=== PATIENT | female | born 1985 | race Caucasian/White ===

== ENCOUNTER 2017-08-26 23:47 | Emergency (ER) | payer OTHER ==
[2017-08-27] MEDS ORDERED: ONDANSETRON 4 MG/2 ML VIAL ONE (00:22)
[2017-08-27] MEDS ORDERED: NA CHLORIDE 0.9% 1,000 ML ONE (00:22)
[2017-08-27 00:42] LABS: Absolute Lymphocytes (CBC) 2.7 K/uL (0.7-4.9); Absolute Monocytes 0.4 K/uL (0.1-1.3); Absolute Neutrophil 2.6 K/uL (1.8-8.0); Basophils % 0.3 % (0-1.3); Eosinophils % 4.3 % (0-4.4); Hematocrit 35.9 % (36.0-45.0); Lymphocytes % 45.5 % (15.3-44.8); MCH 28.6 pg (27.0-35.0); MCV 85.1 fL (80-100); MPV 8.8 fL (7.6-11.3); RBC Red Blood Cell Count 4.21 M/uL (3.86-4.86)
[2017-08-27 00:44] LABS: Urine Blood NEGATIVE (NEG); Urine Glucose TRACE (NEG); Urine Protein NEGATIVE (NEG)
[2017-08-27 01:00] LABS: Bicarbonate 25 mEq/L (21-31); Glucose Level 184 mg/dL (65-120); Potassium 3.1 mEq/L (3.6-5.0); Sodium Level 136 mEq/L (135-145)
[2017-08-27 01:01] LABS: BUN Blood Urea Nitrogen 23 mg/dL (6-20)
--- NOTE | 2017-08-27 01:38 | ER ---
Nurse's Notes [facility] Name: Zehra Nicole Age: 31 yrs Sex: Female : 1985 Arrival Date: 08/26/2017 Time: 23:49 Bed 6 Private MD: Estella Camacho Diagnosis: Nausea and vomiting Presentation: 08/26 23:59 Presenting complaint: Patient states: N/V since this evening. States she is diabetic aa1 and tested her ketones at home and reports it resulted as large. Also reports that she recently started a very low carb diet 4 days ago. Last BGL was 211 \T\ 2330. Transition of care: patient was not received from another setting of care. Onset of symptoms was August 26, 2017. Initial Sepsis Screen: Does the patient meet any 2 criteria? No. Patient's initial sepsis screen is negative. Does the patient have a suspected source of infection? No. Patient's initial sepsis screen is negative. Care prior to arrival: None. 23:59 Method Of Arrival: Ambulatory aa1 23:59 Acuity: KAZ 3 aa1 Triage Assessment: 08/27 00:02 General: Appears in no apparent distress. comfortable, Behavior is calm, cooperative, aa1 appropriate for age. 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 - Social history:: Smoking status: Patient/guardian denies using tobacco. Screenin:01 Abuse screen: Denies threats or abuse. Nutritional screening: No deficits noted. ea Tuberculosis screening: No symptoms or risk factors identified. Fall Risk None identified. Assessment: 00:30 General: Appears in no apparent distress. Behavior is calm, cooperative, appropriate ea for age. Pain: Denies pain. Neuro: Level of Consciousness is awake, alert, obeys commands, Oriented to person, place, time, situation. Cardiovascular: Heart tones S1 S2 present Patient's skin is warm and dry. Respiratory: Airway is patent Respiratory effort is even, unlabored, Respiratory pattern is regular, symmetrical, Breath sounds are clear bilaterally. GI: Abdomen is non-distended, Bowel sounds present X 4 quads. Abd is soft and non tender. GI: Reports nausea, vomiting, since this AM. : No signs and/or symptoms were reported regarding the genitourinary system. EENT: No signs and/or symptoms were reported regarding the EENT system. Derm: Skin is pink, warm \T\ dry. 01:47 Reassessment: Patient and/or family updated on plan of care and expected duration. Pain ea level reassessed. Patient is alert, oriented x 3, equal unlabored respirations, skin warm/dry/pink. Discharge instructions given to patient, verbal instruction given to patient, verbalized the understanding of instruction. Vital Signs: 00:02 BP 124 / 88; Pulse 75; Resp 16; Temp 97.6; Pulse Ox 100% ; Weight 63.5 kg; Height 5 ft. aa1 1 in. (154.94 cm); Pain 0/10; 00:25 BP 138 / 92; Pulse 66; Resp 18; Pulse Ox 99% ; ea 01:49 BP 129 / 79; Pulse 68; Resp 18; Temp 98; Pulse Ox 99% on R/A; Pain 0/10; ea 00:02 Body Mass Index 26.45 (63.50 kg, 154.94 cm) aa1 ED Course: 08/26 23:49 Patient arrived in ED. am2 23:51 Estella Camacho FNP-C is Private Physician. am2 04 00:00 Yariel Portillo MD is Attending Physician. kdr 00:01 Triage completed. aa1 00:02 Arm band placed on left wrist. Patient placed in an exam room, on a stretcher. aa1 00:21 Vidya Acuna, RN is Primary Nurse. ea 00:26 Inserted saline lock: 20 gauge in right antecubital area, using aseptic technique. mt Blood collected. 00:30 Patient has correct armband on for positive identification. Bed in low position. Call ea light in reach. Side rails up X 1. 01:48 No provider procedures requiring assistance completed. IV discontinued, intact, ea bleeding controlled, No redness/swelling at site. Pressure dressing applied. Administered Medications: 00:28 Drug: NS 0.9% 1000 ml Route: IV; Rate: 1 bolus; Site: right antecubital; ea 01:52 Follow up: Response: No adverse reaction; IV Status: Completed infusion; IV Intake: ea 1000ml 00:28 Drug: Zofran 4 mg Route: IVP; Site: right antecubital; ea 01:52 Follow up: Response: No adverse reaction ea Intake: 01:52 IV: 1000ml; Total: 1000ml. ea Outcome: 01:37 Discharge ordered by . kdr 01:48 Discharged to home ambulatory. ea 01:48 Condition: improved 01:48 Discharge instructions given to patient, Instructed on discharge instructions, follow up and referral plans. medication usage, Demonstrated understanding of instructions, follow-up care, medications, Prescriptions given X 1. 01:51 Patient left the ED. ea Signatures: Anastasia Marrero RN RN aa1 Yariel Portillo MD MD kdr Moreno, Amanda amRadha Galvan mt, Elena, RN RN ea
--- NOTE | 2017-08-27 01:38 | EDPHYS ---
Physician Documentation [facility] Name: Zehra Nicole Age: 31 yrs Sex: Female : 1985 Arrival Date: 08/26/2017 Time: 23:49 Bed 6 Private MD: Estella Camacho ED Physician Yariel Portillo HPI: 08/27 02:12 This 31 yrs old Female presents to ER via Ambulatory with complaints of kdr Nausea/Vomiting, high ketones. 02:12 The patient presents to the emergency department with nausea, vomiting, The patient was kdr concerned that she was spilling ketones in her urine and that she may be in early DKA. Onset: The symptoms/episode began/occurred gradually, last few days. Possible causes: unknown, She has had some diet changes in the last few days. The symptoms are aggravated by nothing. The symptoms are alleviated by nothing. Associated signs and symptoms: Pertinent positives: nausea, vomiting. Severity of symptoms: At their worst the symptoms were mild in the emergency department the symptoms are unchanged. The patient has experienced similar episodes in the past, a few times. The patient has not recently seen a physician. 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 - Social history:: Smoking status: Patient/guardian denies using tobacco. ROS: 02:12 Constitutional: Negative for fever, chills, and weight loss, Eyes: Negative for injury, kdr pain, redness, and discharge, Neck: Negative for injury, pain, and swelling, Cardiovascular: Negative for chest pain, palpitations, and edema, Respiratory: Negative for shortness of breath, cough, wheezing, and pleuritic chest pain, Back: Negative for injury and pain, : Negative for injury, bleeding, discharge, and swelling, MS/Extremity: Negative for injury and deformity, Skin: Negative for injury, rash, and discoloration, Neuro: Negative for headache, weakness, numbness, tingling, and seizure activity. Psych: Negative for depression, anxiety, suicide ideation, homicidal ideation, and hallucinations, Allergy/Immunology: Negative for hives, rash, and allergies, Endocrine: Negative for neck swelling, polydipsia, polyuria, polyphagia, and marked weight changes, Hematologic/Lymphatic: Negative for swollen nodes, abnormal bleeding, and unusual bruising. 02:12 Abdomen/GI: Positive for nausea and vomiting, Negative for abdominal pain, diarrhea, constipation, abdominal cramps, abdominal distension, anorexia, dysphagia, hematemesis, black/tarry stool, rectal pain, rectal bleeding, bowel incontinence. Exam: 02:12 Constitutional: This is a well developed, well nourished patient who is awake, alert, kdr and in no acute distress. Head/Face: Normocephalic, atraumatic. Eyes: Pupils equal round and reactive to light, extra-ocular motions intact. Lids and lashes normal. Conjunctiva and sclera are non-icteric and not injected. Cornea within normal limits. Periorbital areas with no swelling, redness, or edema. Neck: Trachea midline, no thyromegaly or masses palpated, and no cervical lymphadenopathy. Supple, full range of motion without nuchal rigidity, or vertebral point tenderness. No Meningismus. Chest/axilla: Normal chest wall appearance and motion. Nontender with no deformity. No lesions are appreciated. Cardiovascular: Regular rate and rhythm with a normal S1 and S2. No gallops, murmurs, or rubs. Normal PMI, no JVD. No pulse deficits. Respiratory: Lungs have equal breath sounds bilaterally, clear to auscultation and percussion. No rales, rhonchi or wheezes noted. No increased work of breathing, no retractions or nasal flaring. Abdomen/GI: Soft, non-tender, with normal bowel sounds. No distension or tympany. No guarding or rebound. No evidence of tenderness throughout. Back: No spinal tenderness. No costovertebral tenderness. Full range of motion. Skin: Warm, dry with normal turgor. Normal color with no rashes, no lesions, and no evidence of cellulitis. MS/ Extremity: Pulses equal, no cyanosis. Neurovascular intact. Full, normal range of motion. Neuro: Awake and alert, GCS 15, oriented to person, place, time, and situation. Cranial nerves II-XII grossly intact. Motor strength 5/5 in all extremities. Sensory grossly intact. Cerebellar exam normal. Normal gait. Psych: Awake, alert, with orientation to person, place and time. Behavior, mood, and affect are within normal limits. Vital Signs: 00:02 BP 124 / 88; Pulse 75; Resp 16; Temp 97.6; Pulse Ox 100% ; Weight 63.5 kg; Height 5 ft. aa1 1 in. (154.94 cm); Pain 0/10; 00:25 BP 138 / 92; Pulse 66; Resp 18; Pulse Ox 99% ; ea 01:49 BP 129 / 79; Pulse 68; Resp 18; Temp 98; Pulse Ox 99% on R/A; Pain 0/10; ea 00:02 Body Mass Index 26.45 (63.50 kg, 154.94 cm) aa1 MDM: 01:37 Patient medically screened. kdr 02:12 Data reviewed: vital signs, nurses notes, lab test result(s). Counseling: I had a kdr detailed discussion with the patient and/or guardian regarding: the historical points, exam findings, and any diagnostic results supporting the discharge/admit diagnosis, lab results, the need for outpatient follow up. 08/27 00:17 Order name: CBC with Diff; Complete Time: 00:55 kdr 08/27 00:17 Order name: Chem 7; Complete Time: 01:36 kdr 08/27 00:33 Order name: Urine Dipstick--Ancillary (enter results); Complete Time: 00:55 rg2 08/27 00:33 Order name: Urine --Ancillary (enter results); Complete Time: 00:55 rg2 08/27 00:17 Order name: Urine Dipstick-Ancillary (obtain specimen); Complete Time: 00:32 kdr Administered Medications: 00:28 Drug: NS 0.9% 1000 ml Route: IV; Rate: 1 bolus; Site: right antecubital; ea 01:52 Follow up: Response: No adverse reaction; IV Status: Completed infusion; IV Intake: ea 1000ml 00:28 Drug: Zofran 4 mg Route: IVP; Site: right antecubital; ea 01:52 Follow up: Response: No adverse reaction ea Disposition: 08/27/17 01:37 Discharged to Home. Impression: Nausea and vomiting. - Condition is Stable. - Discharge Instructions: Nausea and Vomiting, Basg-ri-Pkey. - Prescriptions for promethazine 25 mg Oral Tablet - take 1 tablet by ORAL route every 6 hours As needed; 16 tablet. - Medication Reconciliation Form, Thank You Letter, Antibiotic Education, Prescription Opioid Use form. - Follow up: Private Physician; When: 2 - 3 days; Reason: If symptoms return, Further diagnostic work-up, Recheck today's complaints, Continuance of care, Re-evaluation by your physician. - Problem is new. - Symptoms have improved. Signatures: Dispatcher [employer] EDAnastasia Stephenson, RN RN aa1 Yariel Portillo MD MD kdr Antunez, Elena, RN RN ea
[2017-08-27 02:28] VITALS: O2SAT 99
[2017-08-27 02:30] VITALS: BP 129/79; TEMP 98
== END 2017-08-27 01:51 | disposition home or self-care (01) ==
LOC: ER 23:47
DX: R11.2 Nausea with vomiting, unspecified (principal); E11.9 Type 2 diabetes mellitus without complications; E78.00 Pure hypercholesterolemia, unspecified; E03.9 Hypothyroidism, unspecified; Z79.4 Long term (current) use of insulin
CPT/HCPCS: 36415; 80048; 81003; 81025; 85025; 96361; 96374; 99284; J2405; J7030

== ENCOUNTER 2017-12-21 08:52 | Emergency (ER) | payer OTHER, SELFPAY ==
--- OUTSIDE RECORDS SUMMARY | 2017-12-21 08:54 | XMS REPORT ---
:1985 Author Organization e[employer] Care Team Providers Name Role Phone Janice Shaneka Provider Role Unavailable Allergies, Adverse Reactions, Alerts Substance Reaction Event Type N.K.D.A. Info Not Available Non Drug Allergy Problems Problem Type Condition Code Onset Dates Condition Status Assessment Acquired hypothyroidism E03.9 Active Problem Hyperlipemia E78.5 Active Problem Acquired hypothyroidism E03.9 Active Problem Depression F32.9 Active Assessment Type 1 diabetes mellitus with other E10.69 Active specified complication Assessment Gastroesophageal reflux disease, K21.9 Active esophagitis presence not specified Problem Type 1 diabetes mellitus with other E10.69 Active specified complication Problem Gastroesophageal reflux disease, K21.9 Active esophagitis presence not specified Medications Medication Code Code Instructions Start End Status Dosage System Date Date Tresiba FlexTouch ND 40318391878 200 UNIT/ML Active 40 units Subcutaneous daily Humalog KwikPen ND 35600092827 200 UNIT/ML Active 15 units Subcutaneous sub q prn sliding scale at meals 1 unit every 10 carbs Metformin HCl ND 14589035199 1000 MG Orally October 02, Active 1 tablet twice a day 2017 with a meal Simvastatin ND 09525372940 20 MG Orally Active 1 tablet Once a day in the evening Levothyroxine ND 54438986333 50 MCG Orally Jun 27, Active 1 tablet Sodium Once a day 2017 on an empty stomach in the morning Aspirin ND 09449431610 81 MG Orally Active 1 tablet Once a day Topiramate ND 84433551946 25 MG Orally Active 1 tablet Twice a day Omeprazole ND 80744516952 40 MG Orally October 02, Active 1 capsule Once a day 2017 Loestrin 24 NDC 0 1-20 MG-MCG Active 1 tablet Orally Once a day Results Name Result Date Reference Range Unit Abnormality Flag TSH ----TSH 0.03 [id number] mIU/L L Summary Purpose eClinicalWorks Submission
--- OUTSIDE RECORDS SUMMARY | 2017-12-21 08:54 | XMS REPORT ---
:1985 Author Organization [employer] Care Team Providers Name Role Phone Shaneka Camacho Provider Role Unavailable Allergies No Known Allergies Problems Problem Type Condition Code Onset Dates Condition Status Problem Hyperlipemia E78.5 Active Problem Acquired hypothyroidism E03.9 Active Problem Depression F32.9 Active Problem Type 1 diabetes mellitus with other E10.69 Active specified complication Problem Gastroesophageal reflux disease, K21.9 Active esophagitis presence not specified Medications Medication Code Code Instructions Start End Status Dosage System Date Date Levothyroxine [facility] 88886542568 25 MCG Orally Jun 27, Active 1 tablet Sodium Once a day 2017 on an empty stomach in the morning Results No Known Results Summary Purpose eClinicalWorks Submission
[2017-12-21] MEDS ORDERED: ONDANSETRON 4 MG/2 ML VIAL ONE (09:30)
[2017-12-21] MEDS ORDERED: NA CHLORIDE 0.9% 1,000 ML ONE (09:30)
[2017-12-21 09:41] LABS: Absolute Lymphocytes (CBC) 1.9 K/uL (0.7-4.9); Absolute Monocytes 0.3 K/uL (0.1-1.3); Absolute Neutrophil 2.4 K/uL (1.8-8.0); Basophils % 0.7 % (0-1.3); Eosinophils % 4.9 % (0-4.4); Hematocrit 43.6 % (36.0-45.0); Lymphocytes % 38.4 % (15.3-44.8); MCH 29.4 pg (27.0-35.0); Monocytes % 7.1 % (3.3-12.3); RBC Red Blood Cell Count 5.07 M/uL (3.86-4.86)
[2017-12-21 09:56] LABS: Urine Bacteria <20 /HPF (<20); Urine Culture Reflex Order NOT NEEDED; Urine Mucus 2+ /HPF (NONE SEEN); Urine RBC <5 /HPF (NONE SEEN)
[2017-12-21 09:57] LABS: Urine Blood NEGATIVE (NEG); Urine Glucose TRACE (NEG); Urine Protein NEGATIVE (NEG); Urine Specific Gravity >1.030 (1.005-1.030)
[2017-12-21 10:02] LABS: BUN Blood Urea Nitrogen 12 mg/dL (7-18); Bicarbonate 27 mmol/L (21-32); Glucose Level 187 mg/dL (74-106); Potassium 3.5 mmol/L (3.5-5.1); Sodium Level 138 mmol/L (136-145)
[2017-12-21] MEDS ORDERED: MECLIZINE HCL 12.5 MG TAB ONE (10:20)
--- NOTE | 2017-12-21 11:11 | ER ---
Nurse's Notes [facility] Name: Zehra Nicole Age: 32 yrs Sex: Female : 1985 Arrival Date: 12/21/2017 Time: 08:55 Bed 17 Private MD: Sharla Camacho Diagnosis: Vertigo Presentation: 12/21 09:00 Presenting complaint: Patient states: nausea since 0200 today. Dry mouth, dizziness, aa5 and diarrhea since 0800 today. Denies vomiting, denies pain. 09:00 Transition of care: patient was not received from another setting of care. Onset of aa5 symptoms was December 2017. Risk Assessment: Do you want to hurt yourself or someone else? Patient reports no desire to harm self or others. Initial Sepsis Screen: Does the patient meet any 2 criteria? No. Patient's initial sepsis screen is negative. Does the patient have a suspected source of infection? No. Patient's initial sepsis screen is negative. Care prior to arrival: None. 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 - Social history:: Smoking status: Patient/guardian denies using tobacco. - Ebola Screening: : No symptoms or risks identified at this time. Screenin:47 Abuse screen: Denies threats or abuse. Nutritional screening: No deficits noted. em Tuberculosis screening: No symptoms or risk factors identified. Fall Risk None identified. Assessment: 09:10 General: Appears in no apparent distress. uncomfortable, Behavior is calm, cooperative. em General: Denies fever. Pain: Denies pain. Neuro: Level of Consciousness is awake, alert, obeys commands, Oriented to person, place, time, situation, Gait is steady, Speech is normal, Facial symmetry appears normal, Reports dizziness, Denies headache. Cardiovascular: Capillary refill < 3 seconds Patient's skin is warm and dry. Respiratory: Airway is patent Respiratory effort is even, unlabored, Respiratory pattern is regular, symmetrical. GI: Abdomen is flat, Reports nausea, Patient currently denies vomiting. : Urine is clear. EENT: No signs and/or symptoms were reported regarding the EENT system. Derm: Skin is intact, Skin is pink, warm \T\ dry. Musculoskeletal: Range of motion: intact in all extremities. 09:10 Reassessment: I agree with assessment completed by Johan Presley LVN . aa5 10:59 Reassessment: Patient appears in no apparent distress at this time. Patient and/or em family updated on plan of care and expected duration. Pain level reassessed. Patient is alert, oriented x 3, equal unlabored respirations, skin warm/dry/pink. pt reports dizziness has not improved. 11:29 Reassessment: Patient is alert, oriented x 3, equal unlabored respirations, skin aa5 warm/dry/pink. Patient states feeling better. Patient states symptoms have improved. Vital Signs: 09:08 Weight 62.6 kg (R); Height 5 ft. 1 in. (154.94 cm) (R); Pain 0/10; aa5 09:41 BP 120 / 87; Pulse 77; Resp 16; Temp 98.9(O); Pulse Ox 97% on R/A; mh5 10:00 BP 119 / 82 Supine; Pulse 65; em 10:00 BP 130 / 88 Sitting; Pulse 75; em 10:00 BP 120 / 87 Standing; Pulse 93; em 11:04 BP 116 / 72; Pulse 68; Resp 19; Pulse Ox 99% on R/A; em 09:08 Body Mass Index 26.07 (62.60 kg, 154.94 cm) aa5 ED Course: 08:55 Patient arrived in ED. mr 08:55 Sharla Camacho is Private Physician. mr 08:58 Arm band placed on Patient placed in an exam room, on a stretcher. aa5 09:00 Le[facility] Henderson [facility]-C [facility]. kb 09:00 Joon Virgen MD is Attending Physician. kb 09:10 Johan Presley LVN is Primary Nurse. em 09:10 Triage completed. aa5 09:41 Initial lab(s) drawn, by me, sent to lab. Urine collected: clean catch specimen, mh5 cloudy. Inserted saline lock: 20 gauge in right forearm, using aseptic technique. Blood collected. 09:47 Patient has correct armband on for positive identification. Placed in gown. Bed in low em position. Call light in reach. 09:47 No provider procedures requiring assistance completed. em 11:29 IV discontinued, intact, bleeding controlled, No redness/swelling at site. Pressure aa5 dressing applied. Administered Medications: 09:40 Drug: Zofran 4 mg Route: IVP; Site: right forearm; aa5 10:18 Follow up: Response: No adverse reaction; Nausea is decreased em 09:46 Drug: NS 0.9% 1000 ml Route: IV; Rate: 1000 ml; Site: right forearm; em 11:00 Follow up: IV Status: Completed infusion; IV Intake: 1000ml em 10:18 Drug: Meclizine 25 mg Route: PO; em 11:20 Follow up: Response: No adverse reaction em Point of Care Testing: Blood Glucose: 09:41 Blood Glucose: 194 mg/dL; mh5 Ranges: Intake: 11:00 IV: 1000ml; Total: 1000ml. em Outcome: 11:10 Discharge ordered by . nikhil 11:29 Discharged to home ambulatory. aa5 11:29 Condition: improved 11:29 Discharge instructions given to patient, Instructed on discharge instructions, follow up and referral plans. medication usage, Demonstrated understanding of instructions, follow-up care, medications, Prescriptions given X 2. 11:30 Patient left the ED. aa5 Signatures: Leona Henderson, FAMILY SERVICES MANAGER-C FAMILY SERVICES MANAGER-Ckb Saranya Mednez Fernandez, Johan, RESEARCH MANAGER RESEARCH MANAGER em Mary Jane Sorto, RN Saranya Hutchison Wes
--- NOTE | 2017-12-21 11:11 | EDPHYS ---
Physician Documentation [facility] Name: Zehra Nicole Age: 32 yrs Sex: Female : 1985 Arrival Date: 12/21/2017 Time: 08:55 Bed 17 Private MD: Sharla Camacho ED Physician Joon Virgen HPI: 12/21 11:13 This 32 yrs old Female presents to ER via Ambulatory with complaints of kb Dizziness, Nausea. 09:33 The patient presents with dizziness. Onset: The symptoms/episode began/occurred this kb morning. Context: occurred at home, occurred while the patient was at rest, just prior to the episode the patient experienced nausea. Modifying factors: The symptoms are alleviated by nothing, the symptoms are aggravated by movement of head, standing up, changing position. Associated signs and symptoms: Pertinent positives: nausea. Severity of symptoms: At their worst the symptoms were moderate in the emergency department the symptoms are unchanged. Patient's baseline: Neuro: alert and fully oriented, Motor: no deficits, Ambulation: walks without assistance, Speech: normal. The patient has not experienced similar symptoms in the past. The patient has not recently seen a physician. Pt states she wasn't feeling well yesterday, woke up with nausea in the middle of the night. Woke up again at 0800 with nausea and dizziness. States symptoms are worse when she moves her head, looks up, changes positions. . 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 - Social history:: Smoking status: Patient/guardian denies using tobacco. - Ebola Screening: : No symptoms or risks identified at this time. ROS: 09:33 Constitutional: Negative for fever, chills, and weight loss, Cardiovascular: Negative kb for chest pain, palpitations, and edema, Respiratory: Negative for shortness of breath, cough, wheezing, and pleuritic chest pain, Abdomen/GI: Negative for abdominal pain, vomiting, diarrhea, and constipation. +nausea MS/Extremity: Negative for injury and deformity, Skin: Negative for injury, rash, and discoloration, Neuro: Negative for headache, weakness, numbness, tingling, and seizure. 09:33 Neuro: Positive for dizziness. Exam: 09:33 Head/Face: Normocephalic, atraumatic. Eyes: Pupils equal round and reactive to light, kb extra-ocular motions intact. Lids and lashes normal. Conjunctiva and sclera are non-icteric and not injected. Cornea within normal limits. Periorbital areas with no swelling, redness, or edema. ENT: Nares patent. No nasal discharge, no septal abnormalities noted. Tympanic membranes are normal and external auditory canals are clear. Oropharynx with no redness, swelling, or masses, exudates, or evidence of obstruction, uvula midline. Mucous membranes moist. Neck: Trachea midline, no thyromegaly or masses palpated, and no cervical lymphadenopathy. Supple, full range of motion without nuchal rigidity, or vertebral point tenderness. No Meningismus. Chest/axilla: Normal chest wall appearance and motion. Nontender with no deformity. No lesions are appreciated. Cardiovascular: Regular rate and rhythm with a normal S1 and S2. No gallops, murmurs, or rubs. Normal PMI, no JVD. No pulse deficits. Respiratory: Lungs have equal breath sounds bilaterally, clear to auscultation and percussion. No rales, rhonchi or wheezes noted. No increased work of breathing, no retractions or nasal flaring. Abdomen/GI: Soft, non-tender, with normal bowel sounds. No distension or tympany. No guarding or rebound. No evidence of tenderness throughout. Skin: Warm, dry with normal turgor. Normal color with no rashes, no lesions, and no evidence of cellulitis. MS/ Extremity: Pulses equal, no cyanosis. Neurovascular intact. Full, normal range of motion. Neuro: Awake and alert, GCS 15, oriented to person, place, time, and situation. Cranial nerves II-XII grossly intact. Motor strength 5/5 in all extremities. Sensory grossly intact. Cerebellar exam normal. Normal gait. 09:36 Constitutional: The patient appears alert, awake, uncomfortable. kb Vital Signs: 09:08 Weight 62.6 kg (R); Height 5 ft. 1 in. (154.94 cm) (R); Pain 0/10; aa5 09:41 BP 120 / 87; Pulse 77; Resp 16; Temp 98.9(O); Pulse Ox 97% on R/A; mh5 10:00 BP 119 / 82 Supine; Pulse 65; em 10:00 BP 130 / 88 Sitting; Pulse 75; em 10:00 BP 120 / 87 Standing; Pulse 93; em 11:04 BP 116 / 72; Pulse 68; Resp 19; Pulse Ox 99% on R/A; em 09:08 Body Mass Index 26.07 (62.60 kg, 154.94 cm) aa5 MDM: 09:00 Patient medically screened. kb 09:33 Data reviewed: vital signs, nurses notes. Data interpreted: Pulse oximetry: on room air kb is 100 %. Interpretation: normal. 11:07 Counseling: I had a detailed discussion with the patient and/or guardian regarding: the kb historical points, exam findings, and any diagnostic results supporting the discharge/admit diagnosis, lab results, the need for outpatient follow up, a family practitioner, to return to the emergency department if symptoms worsen or persist or if there are any questions or concerns that arise at home. ED course: Pt states the dizziness is now only when she turns her head to the right. Appears to be more comfortable. . 12/21 09:13 Order name: Basic Metabolic Panel; Complete Time: 10:07 kb 12/21 09:13 Order name: CBC with Diff; Complete Time: 09:50 kb 12/21 09:13 Order name: Urine Microscopic Only; Complete Time: 09:59 kb 12/21 09:43 Order name: Urine Dipstick--Ancillary (enter results); Complete Time: 09:59 bd 12/21 09:43 Order name: Urine --Ancillary (enter results); Complete Time: 09:59 bd 12/21 09:13 Order name: Urine Test (obtain specimen); Complete Time: 09:24 kb 12/21 09:13 Order name: IV Saline Lock; Complete Time: 09:46 kb 12/21 09:13 Order name: Labs collected and sent; Complete Time: 09:46 kb 12/21 09:13 Order name: Urine Dipstick-Ancillary (obtain specimen); Complete Time: 09:46 kb 12/21 09:13 Order name: Orthostatics; Complete Time: 09:46 kb Administered Medications: 09:40 Drug: Zofran 4 mg Route: IVP; Site: right forearm; aa5 10:18 Follow up: Response: No adverse reaction; Nausea is decreased em 09:46 Drug: NS 0.9% 1000 ml Route: IV; Rate: 1000 ml; Site: right forearm; em 11:00 Follow up: IV Status: Completed infusion; IV Intake: 1000ml em 10:18 Drug: Meclizine 25 mg Route: PO; em 11:20 Follow up: Response: No adverse reaction em Point of Care Testing: Blood Glucose: 09:41 Blood Glucose: 194 mg/dL; 5 Ranges: Critical Glucose Levels:Adult <50 mg/dl or >400 mg/dl <40 mg/dl or >180 mg/dl Disposition: 16:10 Co-signature as Attending Physician, Joon Virgen MD. Disposition: 12/21/17 11:10 Discharged to Home. Impression: Vertigo. - Condition is Stable. - Discharge Instructions: Benign Positional Vertigo. - Prescriptions for Meclizine 25 mg Oral Tablet - take 1 tablet by ORAL route every 8 hours As needed; 30 tablet. Zofran 4 mg Oral Tablet - take 1 tablet by ORAL route every 6 hours As needed; 20 tablet. - Medication Reconciliation Form, Thank You Letter, Antibiotic Education, Prescription Opioid Use form. - Follow up: Emergency Department; When: As needed; Reason: Worsening of condition. Follow up: Private Physician; When: 2 - 3 days; Reason: Recheck today's complaints, Continuance of care, Re-evaluation by your physician. Signatures: Dispatcher [employer] Leona Luna, KENNETH-C BAKER PASTRY-Johan Sarmiento, [employer]PER[employer] Mary Jane Al, RN RN aa5 Joon Virgen MD MD Corrections: (The following items were deleted from the chart) 11:30 11:10 12/21/2017 11:10 Discharged to Home. Impression: Vertigo. Condition is Stable. aa5 Forms are Medication Reconciliation Form, Thank You Letter, Antibiotic Education, Prescription Opioid Use. Follow up: Emergency Department; When: As needed; Reason: Worsening of condition. Follow up: Private Physician; When: 2 - 3 days; Reason: Recheck today's complaints, Continuance of care, Re-evaluation by your physician. kb
[2017-12-21 11:36] VITALS: BP 120/87; TEMP 98.9; O2SAT 97
== END 2017-12-21 11:30 | disposition home or self-care (01) ==
LOC: ER 08:52
DX: R42 Dizziness and giddiness (principal); E10.9 Type 1 diabetes mellitus without complications; Z79.4 Long term (current) use of insulin; E78.00 Pure hypercholesterolemia, unspecified; E03.9 Hypothyroidism, unspecified
CPT/HCPCS: 36415; 80048; 81003; 81015; 81025; 82962; 85025; 96361; 96374; 99284; J2405; J7030

== ENCOUNTER 2019-06-11 10:18 | Emergency (ER) | payer BC, SELFPAY ==
--- OUTSIDE RECORDS SUMMARY | 2019-06-11 10:28 | XMS REPORT ---
:1985 Author Organization [employer] Care Team Providers Name Role Phone Weston Abdullahi Provider Role Unavailable Allergies, Adverse Reactions, Alerts Substance Reaction Event Type N.K.D.A. Info Not Available Non Drug Allergy Problems Problem Type Condition Code Onset Dates Condition Status Assessment Hyperlipemia E78.5 Active Assessment Type 1 diabetes mellitus with other E10.69 Active specified complication Assessment Encounter for immunization Z23 Active Assessment Migraine with aura and without G43.109 Active status migrainosus, not intractable Assessment Acquired hypothyroidism E03.9 Active Problem Depression F32.9 Active Problem Hyperlipemia E78.5 Active Problem Migraine with aura and without G43.109 Active status migrainosus, not intractable Problem Gastroesophageal reflux disease, K21.9 Active esophagitis presence not specified Problem Acquired hypothyroidism E03.9 Active Problem Type 1 diabetes mellitus with other E10.69 Active specified complication Medications Medication Code Code Instructions Start End Status Dosage System Date Date Diclofenac ND 54737766603 75 MG Orally Feb 18, Apr 04, Active 1 tablet Sodium Twice a day 2018 2018 with food or milk MetFORMIN HCl ER ND 80252672150 500 MG Orally Apr 10, Active 2 tablet Once a day 2018 with evening meal Omeprazole ND 55719842232 40 MG Orally October 02, Active 1 capsule Once a day 2017 Loestrin 24 Fe NDC 0 1-20 MG-MCG Active 1 tablet Orally Once a day Aspirin ND 62861818849 81 MG Orally Active 1 tablet Once a day Levothyroxine ND 32836778385 25 MCG Once a Active take 1 Sodium day tablet by mouth every day Tresiba ND 52183694640 200 UNIT/ML Active 50 units FlexTouch Subcutaneous daily Metformin HCl ND 42292970453 1000 MG Orally Active 1 tablet twice a day with a meal Humalog KwikPen ND 54945446027 200 UNIT/ML Active 15 units Subcutaneous sub q prn sliding scale sliding scale at meals 1 unit every 10 carbs NovoLog Flexpen [facility] 41856176821 100 UNIT/ML Apr 11, Active as directed Subcutaneous 2017 QID with meals Sumatriptan ND 68808590675 50 MG Orally Feb 18, Active 1 tablet at Succinate Twice a day 2019 least 2 hours between doses as needed Topiramate ND 17256496819 25 MG Orally Active 1 tablet Twice a day Simvastatin ND 50856503611 20 MG Orally Active 1 tablet in Once a day the evening Results No Known Results Immunizations Vaccine Administration Date Flucelvax - single dose syringe Feb 18, 2019 Summary Purpose eClinicalWorks Submission
--- OUTSIDE RECORDS SUMMARY | 2019-06-11 10:28 | XMS REPORT ---
:1985 Author Organization [employer] Care Team Providers Name Role Phone JaniceEstella Provider Role Unavailable Allergies, Adverse Reactions, Alerts Substance Reaction Event Type N.K.D.A. Info Not Available Non Drug Allergy Problems Problem Type Condition Code Onset Dates Condition Status Assessment Acquired hypothyroidism E03.9 Active Assessment Type 1 diabetes mellitus with other E10.69 Active specified complication Assessment Migraine with aura and without G43.109 Active status migrainosus, not intractable Assessment Hyperlipemia E78.5 Active Problem Depression F32.9 Active Problem Hyperlipemia E78.5 Active Problem Migraine with aura and without G43.109 Active status migrainosus, not intractable Problem Gastroesophageal reflux disease, K21.9 Active esophagitis presence not specified Problem Acquired hypothyroidism E03.9 Active Problem Type 1 diabetes mellitus with other E10.69 Active specified complication Medications Medication Code Code Instructions Start End Status Dosage System Date Date MetFORMIN HCl ER ND 50704422421 500 MG Orally Apr 10, Active 2 tablet Once a day 2017 with evening meal Tresiba ND 46023210568 200 UNIT/ML Active 50 units FlexTouch Subcutaneous daily Diclofenac ND 08223942112 75 MG Orally Feb 16, Mar Active 1 tablet Sodium Twice a day 2018 30, with food 2019 or milk Topiramate ND 48191636271 25 MG Orally Active 1 tablet Twice a day Loestrin 24 Fe NDC 0 1-20 MG-MCG Active 1 tablet Orally Once a day Aspirin ND 44704849874 81 MG Orally Active 1 tablet Once a day Simvastatin ND 45528620660 40 MG Orally Mar 18, Active 1 tablet Once a day 2019 in [place] [address]-96 100 UNIT/ML Apr 11, Active as Subcutaneous 2018 directed 10-15 units QID with meals Sumatriptan ND 49090721378 50 MG Orally Feb 18, Active 1 tablet Succinate Twice a day 2019 at least 2 hours between doses as needed Levothyroxine ND 04823056856 50 MCG Orally Active take 1 Sodium Once a day tablet by mouth every day Results No Known Results Summary Purpose eClinicalWorks Submission
--- OUTSIDE RECORDS SUMMARY | 2019-06-11 10:28 | XMS REPORT ---
:1985 Author Organization [employer] Care Team Providers Name Role Phone Janice Estella Provider Role Unavailable Allergies, Adverse Reactions, Alerts Substance Reaction Event Type N.K.D.A. Info Not Available Non Drug Allergy Problems Problem Type Condition Code Onset Dates Condition Status Assessment Acquired hypothyroidism E03.9 Active Assessment Type 1 diabetes mellitus with other E10.69 Active specified complication Assessment Hyperlipemia E78.5 Active Assessment Depression F32.9 Active Problem Depression F32.9 Active Problem Hyperlipemia E78.5 Active Problem Migraine with aura and without G43.109 Active status migrainosus, not intractable Problem Gastroesophageal reflux disease, K21.9 Active esophagitis presence not specified Problem Acquired hypothyroidism E03.9 Active Problem Type 1 diabetes mellitus with other E10.69 Active specified complication Medications Medication Code Code Instructions Start End Status Dosage System Date Date Simvastatin ND 06888251425 40 MG Orally Mar 18, Active 1 tablet in Once a day 2019 the evening MetFORMIN HCl ER ND 17578131865 500 MG Orally Apr 10, Active 2 tablet Once a day 2018 with evening meal Loestrin 24 Fe NDC 0 1-20 MG-MCG Active 1 tablet Orally Once a day Levothyroxine ND 89822698712 50 MCG Orally Active take 1 Sodium Once a day tablet by mouth every day Sumatriptan ND 54203805449 50 MG Orally Feb 18, Active 1 tablet at Succinate Twice a day 2019 least 2 hours between doses as needed NovoLog Flexpen ND 81114730907 100 UNIT/ML Apr 11, Active as directed Subcutaneous 2018 10-15 units QID with meals Tresiba ND 70871714734 200 UNIT/ML Active 50 units FlexTouch Subcutaneous daily Aspirin ND 29313006855 81 MG Orally Active 1 tablet Once a day Topiramate ND 93877048282 25 MG Orally Active 1 tablet Twice a day Results Name Result Date Reference Range Unit Abnormality Flag HEMOGLOBIN A1C ----A1C 10.6 20190520 Summary Purpose eClinicalWorks Submission
[2019-06-11] MEDS ORDERED: ONDANSETRON 4 MG/2 ML VIAL ONE (11:19)
[2019-06-11] MEDS ORDERED: NA CHLORIDE 0.9% 1,000 ML ONE ×2 (11:19→12:39)
[2019-06-11 11:20] LABS: Absolute Lymphocytes (CBC) 1.5 K/uL (0.7-4.9); Basophils % 0.3 % (0-1.3); Hematocrit 45.8 % (36.0-45.0); Lymphocytes % 19.8 % (15.3-44.8); MPV 9.4 fL (7.6-11.3); RBC Red Blood Cell Count 5.42 M/uL (3.86-4.86)
[2019-06-11 11:42] LABS: ALT/SGPT 13 U/L (12-78); AST/SGOT 10 U/L (15-37); Albumin 4.2 g/dL (3.4-5.0); Alkaline Phosphatase 66 U/L (45-117); BUN Blood Urea Nitrogen 14 mg/dL (7-18); Bicarbonate 23 mmol/L (21-32); Bilirubin Direct 0.1 mg/dL (0-0.2); Bilirubin Total 0.6 mg/dL (0.2-1.0); Glucose Level 144 mg/dL (74-106); Lipase 59 U/L (73-393); Protein, Total 8.2 g/dL (6.4-8.2); Sodium Level 136 mmol/L (136-145)
[2019-06-11 12:12] LABS: Urine Blood NEGATIVE (NEG); Urine Glucose 1+ (NEG); Urine Protein 1+ (NEG); Urine Specific Gravity >1.030 (1.005-1.030); Urine pH 5.5 (5.0-7.0)
--- NOTE | 2019-06-11 13:03 | ER ---
Nurse's Notes [facility] Name: Zehra Nicole Age: 33 yrs Sex: Female : 1985 Arrival Date: 06/11/2019 Time: 10:21 Bed 14 Private MD: Diagnosis: Dehydration;Hyperglycemia, unspecified Presentation: 06/11 10:34 Presenting complaint: Patient states: yesterday i started to feel really sick and had a tw2 hard time controlling my blood sugar all day, then today it was over 425 for a fasting, nauseous, i went to work thinking i ate something bad yesterday, then at work anytime i moved around i got really dizzy and felt like my world was upside down. Transition of care: patient was not received from another setting of care. Onset of symptoms was June 11, 2019. Risk Assessment: Do you want to hurt yourself or someone else? Patient reports no desire to harm self or others. Initial Sepsis Screen: Does the patient meet any 2 criteria? HR > 90 bpm. No. Patient's initial sepsis screen is negative. Does the patient have a suspected source of infection? No. Patient's initial sepsis screen is negative. Care prior to arrival: None. 10:34 Method Of Arrival: Ambulatory tw2 10:34 Acuity: KAZ 3 tw2 10:42 Note 7 am i took 25 units, then 9 am i took another 15 units. tw2 Triage Assessment: 10:36 General: Appears in no apparent distress. slender, well groomed, Behavior is calm, tw2 cooperative, appropriate for age. Pain: Complains of pain in abdomen. GI: Reports nausea. 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 - Coronavirus screen:: The patient has NOT traveled to [place], [place], or [place] in the past 14 days. - Social history:: Smoking status: . - Ebola Screening: : Patient denies travel to an Ebola-affected area in the 21 days before illness onset. Screenin:00 Abuse screen: Denies threats or abuse. Denies injuries from another. Nutritional ca1 screening: No deficits noted. Tuberculosis screening: No symptoms or risk factors identified. Fall Risk IV access (20 points). Assessment: 11:00 General: Appears in no apparent distress. comfortable, Behavior is calm, cooperative, ca1 appropriate for age. General: PT reports High Blood sugar in spite of giving herself insulin shots. Pain: Complains of pain in abdomen Pain does not radiate. Pain currently is 4 out of 10 on a pain scale. Quality of pain is described as crampy, Pain began 1 day ago. Is intermittent. Neuro: Level of Consciousness is awake, alert, obeys commands, Oriented to person, place, time, situation, Appropriate for age Reports dizziness, since yesterday. Cardiovascular: Heart tones S1 S2 present Capillary refill < 3 seconds Patient's skin is warm and dry. Respiratory: Airway is patent Respiratory effort is even, unlabored, Respiratory pattern is regular, symmetrical, Breath sounds are clear bilaterally. GI: Abdomen is flat, non-distended, Bowel sounds present X 4 quads. Abd is soft and non tender X 4 quads. Reports nausea, since yesterday. : No deficits noted. No signs and/or symptoms were reported regarding the genitourinary system. EENT: No deficits noted. No signs and/or symptoms were reported regarding the EENT system. Derm: Skin is intact, is healthy with good turgor, Skin is pink, warm \T\ dry. Musculoskeletal: Circulation, motion, and sensation intact. Capillary refill < 3 seconds. 11:54 Reassessment: Patient appears in no apparent distress at this time. Patient and/or ca1 family updated on plan of care and expected duration. Pain level reassessed. Patient is alert, oriented x 3, equal unlabored respirations, skin warm/dry/pink. Ambulated to restroom with steady gait. 13:06 Reassessment: Patient appears in no apparent distress at this time. Patient is alert, ca1 oriented x 3, equal unlabored respirations, skin warm/dry/pink. 13:15 Reassessment: IVF still infusing. o be discharged once completed. ca1 Vital Signs: 10:36 BP 115 / 88; Pulse 116; Resp 18; Temp 98(TE); Pulse Ox 97% on R/A; Weight 61.23 kg (R); tw2 Height 5 ft. 1 in. (154.94 cm); Pain 2/10; 11:54 BP 107 / 82; Pulse 94; Resp 16 S; Pulse Ox 99% on R/A; ca1 13:06 BP 106 / 65; Pulse 86; Resp 17 S; Pulse Ox 100% on R/A; ca1 10:36 Body Mass Index 25.51 (61.23 kg, 154.94 cm) tw2 ED Course: 10:21 Patient arrived in ED. rg4 10:36 Triage completed. tw2 10:36 Arm band placed on. tw2 10:39 Vladimir Mesa PA is PHCP. [facility] 10:39 Hermes Frausto MD is Attending Physician. [facility] 11:00 No provider procedures requiring assistance completed. ca1 11:13 Kari Berry, JAE is Primary Nurse. ca1 11:33 Initial lab(s) drawn, by me, sent to lab. Inserted saline lock: 22 gauge in right mh5 antecubital area, using aseptic technique. Blood collected. 11:34 Patient has correct armband on for positive identification. Placed in gown. Bed in low mh5 position. Call light in reach. Side rails up X 1. Adult w/ patient. Warm blanket given. Pulse ox on. NIBP on. 13:32 IV discontinued, intact, bleeding controlled, No redness/swelling at site. Pressure ca1 dressing applied. Administered Medications: 11:18 Drug: NS 0.9% 1000 ml Route: IV; Rate: 1 bolus; Site: right antecubital; ca1 12:30 Follow up: Response: No adverse reaction; IV Status: Completed infusion ca1 11:20 Drug: Zofran 4 mg Route: IVP; Site: right antecubital; ca1 12:00 Follow up: Response: No adverse reaction; Nausea is decreased ca1 12:39 Drug: NS 0.9% 1000 ml Route: IV; Rate: 1 bolus; Site: right antecubital; ca1 13:20 Follow up: Response: No adverse reaction; IV Status: Completed infusion ca1 Point of Care Testing: Blood Glucose: 10:41 Blood Glucose: 141 mg/dL; tw2 Ranges: Outcome: 13:01 Discharge ordered by MD. ramirez 13:32 Discharged to home ambulatory. ca1 13:32 Condition: stable 13:32 Discharge instructions given to patient, Instructed on discharge instructions, follow up and referral plans. medication usage, Demonstrated understanding of instructions, follow-up care, medications, Prescriptions given X 1. 13:32 Patient left the ED. ca1 Signatures: Vladimir Mesa PA PA jmm Wise, Tara RN RN tw2 Rupa Funez [facility] Saranya Neri [facility] Kari Berry RN RN ca1 Corrections: (The following items were deleted from the chart) 11:54 11:00 Neuro: Level of Consciousness is awake, alert, obeys commands, Oriented to ca1 person, place, time, situation, Appropriate for age ca1
--- NOTE | 2019-06-11 13:04 | EDPHYS ---
Physician Documentation [facility] Name: Zehra Nicole Age: 33 yrs Sex: Female : 1985 Arrival Date: 06/11/2019 Time: 10:21 Bed 14 Private MD: ED Physician Hermes Frausto HPI: 06/11 11:09 This 33 yrs old Female presents to ER via Ambulatory with complaints of jmm Nausea, High Blood Sugar. 11:09 The patient presents to the emergency department with nausea. Onset: The jmm symptoms/episode began/occurred gradually. Possible causes: elevated blood glucose. The symptoms are aggravated by nothing. The symptoms are alleviated by nothing. This is a 33 year old female with a history of type 1 dm that presents to the ED with complaints nausea, fatigue beginning approx 3 days ago. Patient states having difficulty keeping her BGL in normal range. Patient states taking an extra 15 units of insulin just prior to arrival. . [employer] COMPRESSORS: 10:36 LMP 06/04/2019 tw2 Historical: - Allergies: 10:37 No Known Drug Allergies; tw2 - Home Meds: 10:37 Novolog 100 unit/mL Sub-Q soln 15 unit before meals [Active]; levothyroxine 50 mcg tab tw2 1 tab once daily [Active]; Tresiba FlexTouch U-200 200 unit/mL (3 mL) subcutaneous inpn 40 unit daily [Active]; control [Active]; metformin 500 mg Oral tab 1 tab 2 times per day [Active]; - PMHx: 10:37 Diabetes - IDDM; Diabetes Type 1; High Cholesterol; Hypothyroidism; tw2 - PSHx: 10:37 None; tw2 - Immunization history:: Adult Immunizations. - Coronavirus screen:: The patient has NOT traveled to [place], [place], or [place] in the past 14 days. - Social history:: Smoking status: . - Ebola Screening: : Patient denies travel to an Ebola-affected area in the 21 days before illness onset. ROS: 11:09 Constitutional: Positive for fatigue. jmm 11:09 Abdomen/GI: Positive for nausea. 11:09 All other systems are negative. Exam: 11:09 Constitutional: This is a well developed, well nourished patient who is awake, alert, jmm and in no acute distress. Head/Face: atraumatic. Eyes: EOMI, no conjunctival erythema appreciated ENT: Moist Mucus Membranes Neck: Trachea midline, Supple Chest/axilla: Normal chest wall appearance and motion. Cardiovascular: Regular rate and rhythm. No edema appreciated Respiratory: Normal respirations, no respiratory distress appreciated 11:09 Back: Normal ROM Skin: General appearance color normal MS/ Extremity: Moves all extremities, no obvious deformities appreciated, no edema noted to the lower extremities Neuro: Awake and alert, normal gait Psych: Behavior is normal, Mood is normal, Patient is cooperative and pleasant 11:09 Abdomen/GI: Inspection: abdomen appears normal, Bowel sounds: normal, Palpation: abdomen is soft and non-tender, in all quadrants. Vital Signs: 10:36 BP 115 / 88; Pulse 116; Resp 18; Temp 98(TE); Pulse Ox 97% on R/A; Weight 61.23 kg (R); tw2 Height 5 ft. 1 in. (154.94 cm); Pain 2/10; 11:54 BP 107 / 82; Pulse 94; Resp 16 S; Pulse Ox 99% on R/A; ca1 13:06 BP 106 / 65; Pulse 86; Resp 17 S; Pulse Ox 100% on R/A; ca1 10:36 Body Mass Index 25.51 (61.23 kg, 154.94 cm) tw2 MDM: 10:55 Patient medically screened. [facility] 13:00 Data reviewed: vital signs, nurses notes. Counseling: I had a detailed discussion with [facility] the patient and/or guardian regarding: the historical points, exam findings, and any diagnostic results supporting the discharge/admit diagnosis, lab results, the need for outpatient follow up, to return to the emergency department if symptoms worsen or persist or if there are any questions or concerns that arise at home. ED course: Patient states that she feels much better. Labs unremarkable. Patient is advised to follow up with pcp or endo for further evaluation. Patient is advised to follow up with pcp and otherwise given strict return precautions. Patient understood and agrees with the plan of care. . 06/11 10:53 Order name: Basic Metabolic Panel [facility] 06/11 10:53 Order name: CBC with Diff [facility] 06/11 10:53 Order name: Creatinine for Radiology [facility] 06/11 10:53 Order name: Hepatic Function [facility] 06/11 10:53 Order name: Lipase [facility] 06/11 10:54 Order name: Ketone, Serum jm 06/11 10:55 Order name: Glucose, Ancillary Testing; Complete Time: 11:08 EDMS 06/11 11:24 Order name: CBC with Automated Diff; Complete Time: 11:48 EDMS 06/11 11:42 Order name: Creatinine (Radiology Only); Complete Time: 11:48 EDMS 06/11 11:45 Order name: Basic Metabolic Panel; Complete Time: 11:52 EDMS 06/11 11:45 Order name: Liver (Hepatic) Function; Complete Time: 11:52 EDMS 06/11 11:45 Order name: Lipase; Complete Time: 11:52 EDMS 06/11 11:52 Order name: Acetone Level; Complete Time: 11:52 EDMS 06/11 12:05 Order name: Urine Dipstick--Ancillary (enter results) em1 06/11 10:53 Order name: IV Saline Lock; Complete Time: 11:23 m 06/11 10:53 Order name: Labs collected and sent; Complete Time: 11:23 m 06/11 10:53 Order name: Urine Dipstick-Ancillary (obtain specimen); Complete Time: 12:02 m 06/11 12:05 Order name: Urine --Ancillary (enter results) em1 06/11 12:17 Order name: Urine --Ancillary; Complete Time: 12:21 EDMS 06/11 12:17 Order name: Urine Dipstick-Ancillary; Complete Time: 12:21 EDMS Administered Medications: 11:18 Drug: NS 0.9% 1000 ml Route: IV; Rate: 1 bolus; Site: right antecubital; ca1 12:30 Follow up: Response: No adverse reaction; IV Status: Completed infusion ca1 11:20 Drug: Zofran 4 mg Route: IVP; Site: right antecubital; ca1 12:00 Follow up: Response: No adverse reaction; Nausea is decreased ca1 12:39 Drug: NS 0.9% 1000 ml Route: IV; Rate: 1 bolus; Site: right antecubital; ca1 13:20 Follow up: Response: No adverse reaction; IV Status: Completed infusion ca1 Point of Care Testing: Blood Glucose: 10:41 Blood Glucose: 141 mg/dL; tw2 Ranges: Critical Glucose Levels:Adult <50 mg/dl or >400 mg/dl <40 mg/dl or >180 mg/dl Disposition: 16:30 Co-signature as Attending Physician, Hermes Frausto MD. rn Disposition: 06/11/19 13:01 Discharged to Home. Impression: Dehydration, Hyperglycemia, unspecified. - Condition is Stable. - Discharge Instructions: Dehydration, Adult, Hyperglycemia. - Prescriptions for Zofran ODT 4 mg Oral tablet,disintegrating - place 1 tablet by TRANSLINGUAL route every 4-6 hours; 20 tablet. - Medication Reconciliation Form, Thank You Letter, Antibiotic Education, Prescription Opioid Use, Work release form form. - Follow up: Private Physician; When: 2 - 3 days; Reason: Recheck today's complaints, Continuance of care, Re-evaluation by your physician. Signatures: Dispatcher [employer] EDMS Vladimir Mesa PA PA jmm Nieto, Roman, MD MD rn Juana Lacey RN RN tw2 Kari Berry RN RN ca1 Corrections: (The following items were deleted from the chart) 13:32 13:01 06/11/2019 13:01 Discharged to Home. Impression: Dehydration; Hyperglycemia, ca1 unspecified. Condition is Stable. Forms are Medication Reconciliation Form, Thank You Letter, Antibiotic Education, Prescription Opioid Use. Follow up: Private Physician; When: 2 - 3 days; Reason: Recheck today's complaints, Continuance of care, Re-evaluation by your physician. james
[2019-06-11 14:16] VITALS: BP 106/65; O2SAT 100
[2019-06-11 14:41] VITALS: TEMP 98
== END 2019-06-11 13:32 | disposition home or self-care (01) ==
LOC: ER 10:18
DX: E10.65 Type 1 diabetes mellitus with hyperglycemia (principal); E86.0 Dehydration; E03.9 Hypothyroidism, unspecified; E78.00 Pure hypercholesterolemia, unspecified
CPT/HCPCS: 96361; 85025; 80048; 36415; 82010; 81025; 82947; 80076; 81003; 83690; 96374; 99284; J7030 ×2; J2405

== ENCOUNTER 2023-04-04 09:15 | Emergency (ER) | payer BC ==
--- OUTSIDE RECORDS SUMMARY | 2023-04-04 09:20 | XMS REPORT | Continuity of Care Document ---
:1985 Author Organization [facility] t Address [address] [place] [address] [place] [id number] Care Team Providers Name Role Phone Estella Camacho Attending Clinician Unavailable Payers Payer Name Policy Type Policy Number Effective Date Expiration Date S lizzette [employer] 6 [id number] 2021 [facility] [employer] of 00:00:00 - [facility] Blue Cross 6 [id number] [facility] Spiri t Blue Shield of - [facility] Blue Cross 6 [id number] 2018 Common Spiri t Blue Shield of 00:00:00 - [facility] Problems Condition Condition Condition Status Onset Resolution Last Treating Co mments Source Name Details Category Date Date Treatment Clinician Date Multiple Type 1 Problem Common complicati diabetes Spir it ons of mellitus - [facility] type I with other [facility] Migraine Migraine Problem Commo n with aura with aura Spir it and [facility] without [facility], not Center intractabl e [id number] Abnormal Problem Commo n kidney Spirit function - [facility] [id number] Slow Problem Common transit [facility] constipati - [facility] Microalbum Microalbum Problem C ommon inuria inuria Spirit - [facility] [id number] Encounter Problem Com mon for Spirit gynecologi - [facility] samanta [facility] Medical (general) Center (routine) without abnormal findings [id number] Acquired Problem Comm on hypothyroi [facility] dism [facility] Hyperlipid Hyperlipem Problem C ommon aemia ia [facility] Depression Depression Problem C [facility] [id number] Gastroesop Problem Co mmon hageal [facility] reflux - [facility] Medica [facility] not Center specified Allergies, Adverse Reactions, Alerts This patient has no known allergies or adverse reactions. Social History Social Habit Start Date Stop Date Quantity Comments Source History of Tobacco Use Co mmon [facility] Sex Assigned At Com [facility] Smoking Status Start Date Stop Date Source Never Smoker [facility] Former Smoker 2022-03-06 00:00:00 2022-03-06 00:00:00 Common pirit [facility] Medications Ordered Filled Start Stop Current Ordering Indication Dosage Frequency Signature Comments Components Source Medication Medication Date Date Medication? Clinician (SIG) Name Name Dexcom G6 Dexcom G6 2021-0 No Dexcom G6 Sensor - Sensor - 05-31 Sensor - 00:00: 00 Dexcom G6 Dexcom G6 2021-0 No Dexcom G6 Transmitter Transmitter 05-31 Transmitte - - 00:00: r - 00 Dexcom G6 Dexcom G6 2021-0 No Dexcom G6 Sensor - Sensor - 05-31 Sensor - 00:00: 00 Dexcom G6 Dexcom G6 2021-0 No Dexcom G6 Transmitter Transmitter 05-31 Transmitte - - 00:00: r - 00 Dexcom G6 Dexcom G6 2021-0 No Dexcom G6 Transmitter Transmitter 05-31 Transmitte - - 00:00: r - 00 Dexcom G6 Dexcom G6 2021-0 No Dexcom G6 Sensor - Sensor - 05-31 Sensor - 00:00: 00 Dexcom G6 Dexcom G6 2021-0 No Dexcom G6 Sensor - Sensor - 26 Sensor - 00:00: 00 Dexcom G6 Dexcom G6 2021-0 No Dexcom G6 Transmitter Transmitter 05-31 Transmitte - - 00:00: r - 00 Dexcom G6 Dexcom G6 2021-0 No Dexcom G6 Transmitter Transmitter 05-31 Transmitte - - 00:00: r - 00 Dexcom G6 Dexcom G6 2021-0 No Dexcom G6 Sensor - Sensor - 05-31 Sensor - 00:00: 00 Dexcom G6 Dexcom G6 2021-0 No Dexcom G6 Sensor - Sensor - 05-31 Sensor - 00:00: 00 Dexcom G6 Dexcom G6 2-0 No Dexcom G6 Transmitter Transmitter 05-31 Transmitte - - 00:00: r - 00 Dexcom G6 Dexcom G6 2021-0 No Dexcom G6 Transmitter Transmitter 05-31 Transmitte - - 00:00: r - 00 Dexcom G6 Dexcom G6 2021-0 No Dexcom G6 Sensor - Sensor - 05-31 Sensor - 00:00: 00 Dexcom G6 Dexcom G6 2021-0 No Dexcom G6 Transmitter Transmitter 05-31 Transmitte - - 00:00: r - 00 Dexcom G6 Dexcom G6 2021-0 No Dexcom G6 Sensor - Sensor - 05-31 Sensor - 00:00: 00 Simvastatin Simvastatin 2018-05 Yes Estella 1 tablet Common 05-18 [place] [facility] 00:[facility]: evening - [facility] Simvastatin Simvastatin 2018-05 No 1{table QD Simvastati 40 MG 40 MG 1-13 t_in_th n 40 MG 00:00: e_eveni 00 ng} Simvastatin Simvastatin 2018- No 1{table QD Simvastati 40 MG 40 MG 1-13 t_in_th n 40 MG 00:00: e_eveni 00 ng} Simvastatin Simvastatin 2018- No 1{table QD Simvastati 40 MG 40 MG 1-13 t_in_th n 40 MG 00:00: e_eveni 00 ng} Simvastatin Simvastatin 2019- No 1{table QD Simvastati 40 MG 40 MG 1-13 t_in_th n 40 MG 00:00: e_eveni 00 ng} Simvastatin Simvastatin 2019- No 1{table QD Simvastati 40 MG 40 MG 1-13 t_in_th n 40 MG 00:00: e_eveni 00 ng} Simvastatin Simvastatin 2019- No 1{table QD Simvastati 40 MG 40 MG 1-13 t_in_th n 40 MG 00:00: e_eveni 00 ng} Simvastatin Simvastatin 2019 No 1{table QD Simvastati 40 MG 40 MG 1-13 t_in_th n 40 MG 00:00: e_eveni 00 ng} Simvastatin Simvastatin 2018- No 1{table QD Simvastati 40 MG 40 MG 1-13 t_in_th n 40 MG 00:00: e_eveni 00 ng} Simvastatin Simvastatin 2018-05 No 1{table QD Simvastati 40 MG 40 MG 1-13 t_in_th n 40 MG 00:00: e_eveni 00 ng} Simvastatin Simvastatin 2018-05 No 1{table QD Simvastati 40 MG 40 MG 1-13 t_in_th n 40 MG 00:00: e_eveni 00 ng} Simvastatin Simvastatin 2018-05 No 1{table QD Simvastati 40 MG 40 MG 1-13 t_in_th n 40 MG 00:00: e_eveni 00 ng} Simvastatin Simvastatin 2018-05 No 1{table QD Simvastati 40 MG 40 MG -13 t_in_th n 40 MG 00:00: e_eveni 00 ng} SUMAtriptan SUMAtriptan 2018-05 No BID SUMAtripta Succinate Succinate 0-16 n 50 MG 50 MG 00:00: Succinate 00 50 MG SUMAtriptan SUMAtriptan 2018- No BID SUMAtripta Succinate Succinate 0-16 n 50 MG 50 MG 00:00: Succinate 00 50 MG SUMAtriptan SUMAtriptan 2018- No BID SUMAtripta Succinate Succinate 0-16 n 50 MG 50 MG 00:00: Succinate 00 50 MG SUMAtriptan SUMAtriptan 2018- No BID SUMAtripta Succinate Succinate 0-16 n 50 MG 50 MG 00:00: Succinate 00 50 MG SUMAtriptan SUMAtriptan 2018- No BID SUMAtripta Succinate Succinate 0-16 n 50 MG 50 MG 00:00: Succinate 00 50 MG SUMAtriptan SUMAtriptan 2018- No BID SUMAtripta Succinate Succinate 0-16 n 50 MG 50 MG 00:00: Succinate 00 50 MG SUMAtriptan SUMAtriptan 2018- No BID SUMAtripta Succinate Succinate 0-16 n 50 MG 50 MG 00:00: Succinate 00 50 MG SUMAtriptan SUMAtriptan 2018- No BID SUMAtripta Succinate Succinate 0-16 n 50 MG 50 MG 00:00: Succinate 00 50 MG SUMAtriptan SUMAtriptan 2018-05 No BID SUMAtripta Succinate Succinate 0-16 n 50 MG 50 MG 00:00: Succinate 00 50 MG SUMAtriptan SUMAtriptan 2018-05 No BID SUMAtripta Succinate Succinate 0-16 n 50 MG 50 MG 00:00: Succinate 00 50 MG SUMAtriptan SUMAtriptan 2018-05 No BID SUMAtripta Succinate Succinate 0-16 n 50 MG 50 MG 00:00: Succinate 00 50 MG SUMAtriptan SUMAtriptan 2018-05 No BID SUMAtripta Succinate Succinate 0-16 n 50 MG 50 MG 00:00: Succinate 00 50 MG SUMAtriptan SUMAtriptan 2018-05 No BID SUMAtripta Succinate Succinate 0-16 n 50 MG 50 MG 00:00: Succinate 00 50 MG SUMAtriptan SUMAtriptan 2018-05 No BID SUMAtripta Succinate Succinate 0-16 n 50 MG 50 MG 00:00: Succinate 00 50 MG SUMAtriptan SUMAtriptan 2018-05 No BID SUMAtripta Succinate Succinate 0-16 n 50 MG 50 MG 00:00: Succinate 00 50 MG metFORMIN metFORMIN 2017-05 No 2{table QD metFORMIN HCl ER 500 HCl ER 500 2-06 t_with_ HCl ER 500 MG MG 00:00: evening MG 00 _meal} metFORMIN metFORMIN 2017-05 No 2{table QD metFORMIN HCl ER 500 HCl ER 500 2-06 t_with_ HCl ER 500 MG MG 00:00: evening MG 00 _meal} metFORMIN metFORMIN 2017-05 No 2{table QD metFORMIN HCl ER 500 HCl ER 500 2-06 t_with_ HCl ER 500 MG MG 00:00: evening MG 00 _meal} metFORMIN metFORMIN 2017-05 No 2{table QD metFORMIN HCl ER 500 HCl ER 500 2-06 t_with_ HCl ER 500 MG MG 00:00: evening MG 00 _meal} metFORMIN metFORMIN 2017-05 No 2{table QD metFORMIN HCl ER 500 HCl ER 500 2-06 t_with_ HCl ER 500 MG MG 00:00: evening MG 00 _meal} metFORMIN metFORMIN 2017-05 No 2{table QD metFORMIN HCl ER 500 HCl ER 500 2-06 t_with_ HCl ER 500 MG MG 00:00: evening MG 00 _meal} metFORMIN metFORMIN 2017-05 No 2{table QD metFORMIN HCl ER 500 HCl ER 500 2-06 t_with_ HCl ER 500 MG MG 00:00: evening MG 00 _meal} metFORMIN metFORMIN 2017-05 No 2{table QD metFORMIN HCl ER 500 HCl ER 500 2-06 t_with_ HCl ER 500 MG MG 00:00: evening MG 00 _meal} metFORMIN metFORMIN 2017-05 No 2{table QD metFORMIN HCl ER 500 HCl ER 500 2-06 t_with_ HCl ER 500 MG MG 00:00: evening MG 00 _meal} metFORMIN metFORMIN 2017-05 No 2{table QD metFORMIN HCl ER 500 HCl ER 500 2-06 t_with_ HCl ER 500 MG MG 00:00: evening MG 00 _meal} Levothyroxi Levothyroxi Yes Estella take 1 Common ne Sodium ne Sodium [place] tablet by Spirit mouth - [facility] NovoLOG NovoLOG No NovoLOG FlexPen 100 FlexPen 100 FlexPen UNIT/ML UNIT/ML 100 UNIT/ML Topiramate Topiramate No 1{table BID Topiramate 25 MG 25 MG t} 25 MG Levothyroxi Levothyroxi No QD Levothyrox ne Sodium ne Sodium ine Sodium 50 MCG 50 MCG 50 MCG Vitamin B Vitamin B No Vitamin B Complex - Complex - Complex - Iron Iron No 1{table QD Iron (Ferrous (Ferrous t} (Ferrous Sulfate) Sulfate) Sulfate) 325 (65 Fe) 325 (65 Fe) 325 (65 MG MG Fe) MG No Vitamin C Vitamin C No Vitamin C 500 MG 500 MG 500 MG Biotin Biotin No Biotin NovoLOG NovoLOG No NovoLOG FlexPen 100 FlexPen 100 FlexPen UNIT/ML UNIT/ML 100 UNIT/ML Tresiba Tresiba No Tresiba FlexTouch FlexTouch FlexTouch 200 UNIT/ML 200 UNIT/ML 200 UNIT/ML Hair Skin & Hair Skin & No Hair Skin Nails Nails & Nails Gummies Gummies Gummies 1250-7.5-7. 1250-7.5-7. 1250-7.5-7 5 5 .5 MCG-MG-UNT MCG-MG-UNT MCG-MG-UNT Aspirin 81 Aspirin 81 No 1{table QD Aspirin 81 MG MG t} MG Topiramate Topiramate No 1{table BID Topiramate 25 MG 25 MG t} 25 MG Aspirin 81 Aspirin 81 No 1{table QD Aspirin 81 MG MG t} MG Biotin Biotin No Biotin No Vitamin B Vitamin B No Vitamin B Complex - Complex - Complex - Iron Iron No 1{table QD Iron (Ferrous (Ferrous t} (Ferrous Sulfate) Sulfate) Sulfate) 325 (65 Fe) 325 (65 Fe) 325 (65 MG MG Fe) MG Levothyroxi Levothyroxi No QD Levothyrox ne Sodium ne Sodium ine Sodium 50 MCG 50 MCG 50 MCG NovoLOG NovoLOG No NovoLOG FlexPen 100 FlexPen 100 FlexPen UNIT/ML UNIT/ML 100 UNIT/ML Tresiba Tresiba No Tresiba FlexTouch FlexTouch FlexTouch 200 UNIT/ML 200 UNIT/ML 200 UNIT/ML Vitamin C Vitamin C No Vitamin C 500 MG 500 MG 500 MG Hair Skin & Hair Skin & No Hair Skin Nails Nails & Nails Gummies Gummies Gummies 1250-7.5-7. 1250-7.5-7. 1250-7.5-7 5 5 .5 MCG-MG-UNT MCG-MG-UNT MCG-MG-UNT Biotin Biotin No Biotin NovoLOG 100 NovoLOG 100 No TID NovoLOG UNIT/ML UNIT/ML 100 UNIT/ML Vitamin C Vitamin C No Vitamin C 500 MG 500 MG 500 MG Hair Skin & Hair Skin & No Hair Skin Nails Nails & Nails Gummies Gummies Gummies 1250-7.5-7. 1250-7.5-7. 1250-7.5-7 5 5 .5 MCG-MG-UNT MCG-MG-UNT MCG-MG-UNT Aspirin 81 Aspirin 81 No 1{table QD Aspirin 81 MG MG t} MG Levothyroxi Levothyroxi No QD Levothyrox ne Sodium ne Sodium ine Sodium 50 MCG 50 MCG 50 MCG No Iron Iron No 1{table QD Iron (Ferrous (Ferrous t} (Ferrous Sulfate) Sulfate) Sulfate) 325 (65 Fe) 325 (65 Fe) 325 (65 MG MG Fe) MG Topiramate Topiramate No 1{table BID Topiramate 25 MG 25 MG t} 25 MG Tresiba Tresiba No Tresiba FlexTouch FlexTouch FlexTouch 200 UNIT/ML 200 UNIT/ML 200 UNIT/ML Vitamin B Vitamin B No Vitamin B Complex - Complex - Complex - Biotin Biotin No Biotin Levothyroxi Levothyroxi No QD Levothyrox ne Sodium ne Sodium ine Sodium 75 MCG 75 MCG 75 MCG NovoLOG 100 NovoLOG 100 No TID NovoLOG UNIT/ML UNIT/ML 100 UNIT/ML Vitamin C Vitamin C No Vitamin C 500 MG 500 MG 500 MG Hair Skin & Hair Skin & No Hair Skin Nails Nails & Nails Gummies Gummies Gummies 1250-7.5-7. 1250-7.5-7. 1250-7.5-7 5 5 .5 MCG-MG-UNT MCG-MG-UNT MCG-MG-UNT Aspirin 81 Aspirin 81 No 1{table QD Aspirin 81 MG MG t} MG Iron Iron No 1{table QD Iron (Ferrous (Ferrous t} (Ferrous Sulfate) Sulfate) Sulfate) 325 (65 Fe) 325 (65 Fe) 325 (65 MG MG Fe) MG Vitamin B Vitamin B No Vitamin B Complex - Complex - Complex - No Topiramate Topiramate No 1{table BID Topiramate 25 MG 25 MG t} 25 MG Tresiba Tresiba No Tresiba FlexTouch FlexTouch FlexTouch 200 UNIT/ML 200 UNIT/ML 200 UNIT/ML NovoLOG NovoLOG No NovoLOG FlexPen 100 FlexPen 100 FlexPen UNIT/ML UNIT/ML 100 UNIT/ML Biotin Biotin No Biotin Tresiba Tresiba No Tresiba FlexTouch FlexTouch FlexTouch 200 UNIT/ML 200 UNIT/ML 200 UNIT/ML Aspirin 81 Aspirin 81 No 1{table QD Aspirin 81 MG MG t} MG Iron Iron No 1{table QD Iron (Ferrous (Ferrous t} (Ferrous Sulfate) Sulfate) Sulfate) 325 (65 Fe) 325 (65 Fe) 325 (65 MG MG Fe) MG Topiramate Topiramate No 1{table BID Topiramate 25 MG 25 MG t} 25 MG Vitamin C Vitamin C No Vitamin C 500 MG 500 MG 500 MG NovoLOG 100 NovoLOG 100 No NovoLOG UNIT/ML UNIT/ML 100 UNIT/ML Vitamin B Vitamin B No Vitamin B Complex - Complex - Complex - Hair Skin & Hair Skin & No Hair Skin Nails Nails & Nails Gummies Gummies Gummies 1250-7.5-7. 1250-7.5-7. 1250-7.5-7 5 5 .5 MCG-MG-UNT MCG-MG-UNT MCG-MG-UNT No Levothyroxi Levothyroxi No Levothyrox ne Sodium ne Sodium ine Sodium 75 MCG 75 MCG 75 MCG NovoLOG NovoLOG No NovoLOG FlexPen 100 FlexPen 100 FlexPen UNIT/ML UNIT/ML 100 UNIT/ML Biotin Biotin No Biotin Tresiba Tresiba No Tresiba FlexTouch FlexTouch FlexTouch 200 UNIT/ML 200 UNIT/ML 200 UNIT/ML Aspirin 81 Aspirin 81 No 1{table QD Aspirin 81 MG MG t} MG Iron Iron No 1{table QD Iron (Ferrous (Ferrous t} (Ferrous Sulfate) Sulfate) Sulfate) 325 (65 Fe) 325 (65 Fe) 325 (65 MG MG Fe) MG Topiramate Topiramate No 1{table BID Topiramate 25 MG 25 MG t} 25 MG Vitamin C Vitamin C No Vitamin C 500 MG 500 MG 500 MG Hair Skin & Hair Skin & No Hair Skin Nails Nails & Nails Gummies Gummies Gummies 1250-7.5-7. 1250-7.5-7. 1250-7.5-7 5 5 .5 MCG-MG-UNT MCG-MG-UNT MCG-MG-UNT NovoLOG 100 NovoLOG 100 No NovoLOG UNIT/ML UNIT/ML 100 UNIT/ML Vitamin B Vitamin B No Vitamin B Complex - Complex - Complex - No Levothyroxi Levothyroxi No Levothyrox ne Sodium ne Sodium ine Sodium 75 MCG 75 MCG 75 MCG Tresiba Tresiba No Tresiba FlexTouch FlexTouch FlexTouch 200 UNIT/ML 200 UNIT/ML 200 UNIT/ML Levothyroxi Levothyroxi No Levothyrox ne Sodium ne Sodium ine Sodium 75 MCG 75 MCG 75 MCG Iron Iron No 1{table QD Iron (Ferrous (Ferrous t} (Ferrous Sulfate) Sulfate) Sulfate) 325 (65 Fe) 325 (65 Fe) 325 (65 MG MG Fe) MG Vitamin B Vitamin B No Vitamin B Complex - Complex - Complex - Hair Skin & Hair Skin & No Hair Skin Nails Nails & Nails Gummies Gummies Gummies 1250-7.5-7. 1250-7.5-7. 1250-7.5-7 5 5 .5 MCG-MG-UNT MCG-MG-UNT MCG-MG-UNT Biotin Biotin No Biotin NovoLOG NovoLOG No NovoLOG FlexPen 100 FlexPen 100 FlexPen UNIT/ML UNIT/ML 100 UNIT/ML Vitamin C Vitamin C No Vitamin C 500 MG 500 MG 500 MG Dexcom G6 Dexcom G6 No Dexcom G6 Sensor - Sensor - Sensor - Dexcom G6 Dexcom G6 No Dexcom G6 Transmitter Transmitter Transmitte - - r - Aspirin 81 Aspirin 81 No 1{table QD Aspirin 81 MG MG t} MG No Topiramate Topiramate No 1{table BID Topiramate 25 MG 25 MG t} 25 MG NovoLOG NovoLOG No NovoLOG FlexPen 100 FlexPen 100 FlexPen UNIT/ML UNIT/ML 100 UNIT/ML Dexcom G6 Dexcom G6 No Dexcom G6 Transmitter Transmitter Transmitte - - r - Vitamin B Vitamin B No Vitamin B Complex - Complex - Complex - Hair Skin & Hair Skin & No Hair Skin Nails Nails & Nails Gummies Gummies Gummies 1250-7.5-7. 1250-7.5-7. 1250-7.5-7 5 5 .5 MCG-MG-UNT MCG-MG-UNT MCG-MG-UNT Topiramate Topiramate No 1{table BID Topiramate 25 MG 25 MG t} 25 MG Tresiba Tresiba No Tresiba FlexTouch FlexTouch FlexTouch 200 UNIT/ML 200 UNIT/ML 200 UNIT/ML metFORMIN metFORMIN No metFORMIN HCl ER 500 HCl ER 500 HCl ER 500 MG MG MG Vitamin C Vitamin C No Vitamin C 500 MG 500 MG 500 MG Dexcom G6 Dexcom G6 No Dexcom G6 Sensor - Sensor - Sensor - Aspirin 81 Aspirin 81 No 1{table QD Aspirin 81 MG MG t} MG No Iron Iron No 1{table QD Iron (Ferrous (Ferrous t} (Ferrous Sulfate) Sulfate) Sulfate) 325 (65 Fe) 325 (65 Fe) 325 (65 MG MG Fe) MG Biotin Biotin No Biotin Levothyroxi Levothyroxi No Levothyrox ne Sodium ne Sodium ine Sodium 75 MCG 75 MCG 75 MCG NovoLOG NovoLOG No NovoLOG FlexPen 100 FlexPen 100 FlexPen UNIT/ML UNIT/ML 100 UNIT/ML Dexcom G6 Dexcom G6 No Dexcom G6 Transmitter Transmitter Transmitte - - r - Vitamin B Vitamin B No Vitamin B Complex - Complex - Complex - Hair Skin & Hair Skin & No Hair Skin Nails Nails & Nails Gummies Gummies Gummies 1250-7.5-7. 1250-7.5-7. 1250-7.5-7 5 5 .5 MCG-MG-UNT MCG-MG-UNT MCG-MG-UNT Topiramate Topiramate No 1{table BID Topiramate 25 MG 25 MG t} 25 MG Tresiba Tresiba No Tresiba FlexTouch FlexTouch FlexTouch 200 UNIT/ML 200 UNIT/ML 200 UNIT/ML metFORMIN metFORMIN No metFORMIN HCl ER 500 HCl ER 500 HCl ER 500 MG MG MG Vitamin C Vitamin C No Vitamin C 500 MG 500 MG 500 MG Dexcom G6 Dexcom G6 No Dexcom G6 Sensor - Sensor - Sensor - Aspirin 81 Aspirin 81 No 1{table QD Aspirin 81 MG MG t} MG No Iron Iron No 1{table QD Iron (Ferrous (Ferrous t} (Ferrous Sulfate) Sulfate) Sulfate) 325 (65 Fe) 325 (65 Fe) 325 (65 MG MG Fe) MG Biotin Biotin No Biotin Levothyroxi Levothyroxi No Levothyrox ne Sodium ne Sodium ine Sodium 75 MCG 75 MCG 75 MCG Dexcom G6 Dexcom G6 No Dexcom G6 Sensor - Sensor - Sensor - Simvastatin Simvastatin No Simvastati 80 MG 80 MG n 80 MG Hair Skin & Hair Skin & No Hair Skin Nails Nails & Nails Gummies Gummies Gummies 1250-7.5-7. 1250-7.5-7. 1250-7.5-7 5 5 .5 MCG-MG-UNT MCG-MG-UNT MCG-MG-UNT NovoLOG NovoLOG No NovoLOG FlexPen 100 FlexPen 100 FlexPen UNIT/ML UNIT/ML 100 UNIT/ML Iron Iron No 1{table QD Iron (Ferrous (Ferrous t} (Ferrous Sulfate) Sulfate) Sulfate) 325 (65 Fe) 325 (65 Fe) 325 (65 MG MG Fe) MG Biotin Biotin No Biotin Vitamin B Vitamin B No Vitamin B Complex - Complex - Complex - Topiramate Topiramate No 1{table BID Topiramate 25 MG 25 MG t} 25 MG Levothyroxi Levothyroxi No Levothyrox ne Sodium ne Sodium ine Sodium 75 MCG 75 MCG 75 MCG No Tresiba Tresiba No Tresiba FlexTouch FlexTouch FlexTouch 200 UNIT/ML 200 UNIT/ML 200 UNIT/ML Vitamin C Vitamin C No Vitamin C 500 MG 500 MG 500 MG Dexcom G6 Dexcom G6 No Dexcom G6 Transmitter Transmitter Transmitte - - r - metFORMIN metFORMIN No 1{table QD metFORMIN HCl ER 500 HCl ER 500 t_with_ HCl ER 500 MG MG evening MG _meal} Aspirin 81 Aspirin 81 No 1{table QD Aspirin 81 MG MG t} MG Dexcom G6 Dexcom G6 No Dexcom G6 Sensor - Sensor - Sensor - Simvastatin Simvastatin No Simvastati 80 MG 80 MG n 80 MG Hair Skin & Hair Skin & No Hair Skin Nails Nails & Nails Gummies Gummies Gummies 1250-7.5-7. 1250-7.5-7. 1250-7.5-7 5 5 .5 MCG-MG-UNT MCG-MG-UNT MCG-MG-UNT NovoLOG NovoLOG No NovoLOG FlexPen 100 FlexPen 100 FlexPen UNIT/ML UNIT/ML 100 UNIT/ML Iron Iron No 1{table QD Iron (Ferrous (Ferrous t} (Ferrous Sulfate) Sulfate) Sulfate) 325 (65 Fe) 325 (65 Fe) 325 (65 MG MG Fe) MG Biotin Biotin No Biotin Vitamin B Vitamin B No Vitamin B Complex - Complex - Complex - Topiramate Topiramate No 1{table BID Topiramate 25 MG 25 MG t} 25 MG Levothyroxi Levothyroxi No Levothyrox ne Sodium ne Sodium ine Sodium 75 MCG 75 MCG 75 MCG No Tresiba Tresiba No Tresiba FlexTouch FlexTouch FlexTouch 200 UNIT/ML 200 UNIT/ML 200 UNIT/ML Vitamin C Vitamin C No Vitamin C 500 MG 500 MG 500 MG Dexcom G6 Dexcom G6 No Dexcom G6 Transmitter Transmitter Transmitte - - r - metFORMIN metFORMIN No 1{table QD metFORMIN HCl ER 500 HCl ER 500 t_with_ HCl ER 500 MG MG evening MG _meal} Aspirin 81 Aspirin 81 No 1{table QD Aspirin 81 MG MG t} MG Dexcom G6 Dexcom G6 No Dexcom G6 Sensor - Sensor - Sensor - Simvastatin Simvastatin No Simvastati 80 MG 80 MG n 80 MG Hair Skin & Hair Skin & No Hair Skin Nails Nails & Nails Gummies Gummies Gummies 1250-7.5-7. 1250-7.5-7. 1250-7.5-7 5 5 .5 MCG-MG-UNT MCG-MG-UNT MCG-MG-UNT NovoLOG NovoLOG No NovoLOG FlexPen 100 FlexPen 100 FlexPen UNIT/ML UNIT/ML 100 UNIT/ML Iron Iron No 1{table QD Iron (Ferrous (Ferrous t} (Ferrous Sulfate) Sulfate) Sulfate) 325 (65 Fe) 325 (65 Fe) 325 (65 MG MG Fe) MG Biotin Biotin No Biotin Vitamin B Vitamin B No Vitamin B Complex - Complex - Complex - NovoLOG NovoLOG No NovoLOG FlexPen 100 FlexPen 100 FlexPen UNIT/ML UNIT/ML 100 UNIT/ML Topiramate Topiramate No 1{table BID Topiramate 25 MG 25 MG t} 25 MG Levothyroxi Levothyroxi No Levothyrox ne Sodium ne Sodium ine Sodium 75 MCG 75 MCG 75 MCG No Tresiba Tresiba No Tresiba FlexTouch FlexTouch FlexTouch 200 UNIT/ML 200 UNIT/ML 200 UNIT/ML Vitamin C Vitamin C No Vitamin C 500 MG 500 MG 500 MG Dexcom G6 Dexcom G6 No Dexcom G6 Transmitter Transmitter Transmitte - - r - metFORMIN metFORMIN No 1{table QD metFORMIN HCl ER 500 HCl ER 500 t_with_ HCl ER 500 MG MG evening MG _meal} Aspirin 81 Aspirin 81 No 1{table QD Aspirin 81 MG MG t} MG Biotin Biotin No Biotin Tresiba Tresiba No Tresiba FlexTouch FlexTouch FlexTouch 200 UNIT/ML 200 UNIT/ML 200 UNIT/ML Aspirin 81 Aspirin 81 No 1{table QD Aspirin 81 MG MG t} MG Iron Iron No 1{table QD Iron (Ferrous (Ferrous t} (Ferrous Sulfate) Sulfate) Sulfate) 325 (65 Fe) 325 (65 Fe) 325 (65 MG MG Fe) MG Topiramate Topiramate No 1{table BID Topiramate 25 MG 25 MG t} 25 MG Vitamin C Vitamin C No Vitamin C 500 MG 500 MG 500 MG NovoLOG 100 NovoLOG 100 No NovoLOG UNIT/ML UNIT/ML 100 UNIT/ML Vitamin B Vitamin B No Vitamin B Complex - Complex - Complex - Hair Skin & Hair Skin & No Hair Skin Nails Nails & Nails Gummies Gummies Gummies 1250-7.5-7. 1250-7.5-7. 1250-7.5-7 5 5 .5 MCG-MG-UNT MCG-MG-UNT MCG-MG-UNT No Levothyroxi Levothyroxi No Levothyrox ne Sodium ne Sodium ine Sodium 75 MCG 75 MCG 75 MCG Vitamin B Vitamin B No Vitamin B Complex - Complex - Complex - Levothyroxi Levothyroxi No QD Levothyrox ne Sodium ne Sodium ine Sodium 50 MCG 50 MCG 50 MCG Hair Skin & Hair Skin & No Hair Skin Nails Nails & Nails Gummies Gummies Gummies 1250-7.5-7. 1250-7.5-7. 1250-7.5-7 5 5 .5 MCG-MG-UNT MCG-MG-UNT MCG-MG-UNT Topiramate Topiramate No 1{table BID Topiramate 25 MG 25 MG t} 25 MG Vitamin C Vitamin C No Vitamin C 500 MG 500 MG 500 MG Tresiba Tresiba No Tresiba FlexTouch FlexTouch FlexTouch 200 UNIT/ML 200 UNIT/ML 200 UNIT/ML No Aspirin 81 Aspirin 81 No 1{table QD Aspirin 81 MG MG t} MG Biotin Biotin No Biotin Iron Iron No 1{table QD Iron (Ferrous (Ferrous t} (Ferrous Sulfate) Sulfate) Sulfate) 325 (65 Fe) 325 (65 Fe) 325 (65 MG MG Fe) MG NovoLOG NovoLOG No NovoLOG FlexPen 100 FlexPen 100 FlexPen UNIT/ML UNIT/ML 100 UNIT/ML Hair Skin & Hair Skin & No Hair Skin Nails Nails & Nails Gummies Gummies Gummies 1250-7.5-7. 1250-7.5-7. 1250-7.5-7 5 5 .5 MCG-MG-UNT MCG-MG-UNT MCG-MG-UNT No Tresiba Tresiba No Tresiba FlexTouch FlexTouch FlexTouch 200 UNIT/ML 200 UNIT/ML 200 UNIT/ML Vitamin C Vitamin C No Vitamin C 500 MG 500 MG 500 MG Aspirin 81 Aspirin 81 No 1{table QD Aspirin 81 MG MG t} MG Levothyroxi Levothyroxi No QD Levothyrox ne Sodium ne Sodium ine Sodium 50 MCG 50 MCG 50 MCG Biotin Biotin No Biotin Topiramate Topiramate No 1{table BID Topiramate 25 MG 25 MG t} 25 MG Vitamin B Vitamin B No Vitamin B Complex - Complex - Complex - Iron Iron No 1{table QD Iron (Ferrous (Ferrous t} (Ferrous Sulfate) Sulfate) Sulfate) 325 (65 Fe) 325 (65 Fe) 325 (65 MG MG Fe) MG Immunizations Ordered Filled Immunization Date Status Comments [facility] e Immunization Name Name Flucelvax - Flucelvax - 2022-03-07 Completed [facility] multidose vial multidose vial 15:02:00 - [facility] Flucelvax - Flucelvax - 2022-03-07 Completed [facility] multidose vial multidose vial 15:02:00 - [facility] Flucelvax - Flucelvax - 2022-03-07 Completed [facility] multidose vial multidose vial 15:02:00 - [facility] Flucelvax - single Flucelvax - single 2019-02-18 Completed [facility] dose syringe dose syringe 14:59:00 - [facility] Flucelvax - single Flucelvax - single 2019-02-18 Completed [facility] dose syringe dose syringe 14:59:00 - [facility] Flucelvax - single Flucelvax - single 2019-02-18 Completed [facility] dose syringe dose syringe 14:59:00 - [facility] Flucelvax - single Flucelvax - single 2019-02-18 Completed [facility] dose syringe dose syringe 14:59:00 - [facility] Flucelvax - single Flucelvax - single 2019-02-18 Completed [facility] dose syringe dose syringe 14:59:00 - [facility] [facility] Flucelvax - single Flucelvax - single 2019-02-18 Completed [facility] dose syringe dose syringe 14:59:00 - [facility] Flucelvax - single Flucelvax - single 2019-02-18 Completed [facility] dose syringe dose syringe 14:59:00 - [facility] Flucelvax - single Flucelvax - single 2019-02-18 Completed [facility] dose syringe dose syringe 14:59:00 - [facility] Flucelvax - single Flucelvax - single 2019-02-18 Completed [facility] dose syringe dose syringe 14:59:00 - [facility] Flucelvax - single Flucelvax - single 2019-02-18 Completed [facility] dose syringe dose syringe 14:59:00 - [facility] Flucelvax - single Flucelvax - single 2019-02-18 Completed [facility] dose syringe dose syringe 14:59:00 - [facility] Flucelvax - single Flucelvax - single 2019-02-18 Completed [facility] dose syringe dose syringe 14:59:00 - [facility] Flucelvax - single Flucelvax - single 2019-02-18 Completed [facility] dose syringe dose syringe 00:00:00 - [facility] Flucelvax - Flucelvax - 2018-04-10 Completed [facility] multidose [facility]ial multidose vial 16:14:00 - [facility] Flucelvax - Flucelvax - 2018-04-10 Completed [facility] multidose [facility]ial multidose vial 16:14:00 - [facility] Flucelvax - Flucelvax - 2018-04-10 Completed [facility] multidose [facility]ial multidose vial 16:14:00 - [facility] Flucelvax - Flucelvax - 2018-04-10 Completed [facility] multidose [facility]ial multidose vial 16:14:00 - [facility] Flucelvax - Flucelvax - 2018-04-10 Completed [facility] multidose [facility]ial multidose vial 16:14:00 - [facility] Flucelvax - Flucelvax - 2018-04-10 Completed [facility] multidose [facility]ial multidose vial 16:14:00 - [facility] Flucelvax - Flucelvax - 2018-04-10 Completed [facility]ose [facility]ial multidose vial 16:14:00 - [facility] Flucelvax - Flucelvax - 2018-04-10 Completed [facility] multidose [facility]ial multidose vial 16:14:00 - [facility] Flucelvax - Flucelvax - 2018-04-10 Completed [facility] multidose [facility]ial multidose vial 16:14:00 - [facility] Flucelvax - Flucelvax - 2018-04-10 Completed [facility] multidose [facility]ial multidose vial 16:14:00 - [facility] Flucelvax - Flucelvax - 2018-04-10 Completed [facility] multidose [facility]ial multidose vial 16:14:00 - [facility] Flucelvax - Flucelvax - 2018-04-10 Completed [facility] multidose [facility]ial multidose vial 16:14:00 - [facility] Flucelvax - Flucelvax - Unknown Completed [facility] multidose [facility]ial multidose vial - [facility] Flucelvax - Flucelvax - Unknown Completed [facility] multidose [facility]ial multidose vial - [facility] Flucelvax - single Flucelvax - single Unknown Completed [facility] dose syringe dose syringe - [facility] Flucelvax - Flucelvax - Unknown Completed [facility] multidose [facility]ial multidose vial - [facility] Flucelvax - Flucelvax - Unknown Completed [facility] multidose [facility]ial multidose vial - [facility] Flucelvax - single Flucelvax - single Unknown Completed [facility] dose syringe dose syringe - [facility] Flucelvax - Flucelvax - Unknown Completed [facility] multidose [facility]ial multidose vial - [facility] Flucelvax - Flucelvax - Unknown Completed [facility] multidose [facility]ial multidose vial - [facility] Flucelvax - single Flucelvax - single Unknown Completed [facility] dose syringe dose syringe - [facility] Vital Signs Vital Name Observation Time Observation Value Comments Source height 2022-10-17 13:00:00 61 [in_i] [facility] weight 2022-10-17 13:00:00 147.0 [lb_av] [facility] temperature 2022-10-17 13:00:00 98.1 [degF] [facility] bmi 2022-10-17 13:00:00 27.77 kg/m2 [facility] oximetry 2022-10-17 13:00:00 99 % [facility] respiratory rate 2022-10-17 13:00:00 16 /min Comm on [facility] blood pressure 2022-10-17 13:00:00 137 mm[Hg] Common [facility] - systolic [facility] blood pressure 2022-10-17 13:00:00 81 mm[Hg] [facility] - diastolic [facility] height 2022-06-06 08:00:00 61 [in_i] Common [facility] weight 2022-06-06 08:00:00 146.2 [lb_av] Common [facility] temperature 2022-06-06 08:00:00 98.2 [degF] Common [facility] bmi 2022-06-06 08:00:00 27.62 kg/m2 [facility] oximetry 2022-06-06 08:00:00 98 % [facility] respiratory rate 2022-06-06 08:00:00 15 /min Comm on [facility] blood pressure 2022-06-06 08:00:00 125 mm[Hg] Common [facility] - systolic [facility] blood pressure 2022-06-06 08:00:00 73 mm[Hg] Common [facility] - diastolic [facility] height 2022-06-06 08:00:00 61 [in_i] Common [facility] weight 2022-06-06 08:00:00 146.2 [lb_av] Common [facility] temperature 2022-06-06 08:00:00 98.2 [degF] Common [facility] bmi 2022-06-06 08:00:00 27.62 kg/m2 Common [facility] oximetry 2022-06-06 08:00:00 98 % [facility] respiratory rate 2022-06-06 08:00:00 15 /min Comm on [facility] blood pressure 2022-06-06 08:00:00 125 mm[Hg] Common [facility] - systolic [facility] blood pressure 2022-06-06 08:00:00 73 mm[Hg] [facility] - diastolic [facility] height 2022-03-07 14:40:00 61 [in_i] [facility] weight 2022-03-07 14:40:00 148 [lb_av] [facility] temperature 2022-03-07 14:40:00 97.2 [degF] [facility] - [facility] bmi 2022-03-07 14:40:00 27.96 kg/m2 [facility] oximetry 2022-03-07 14:40:00 98 % [facility] 2022-03-07 14:40:00 16 /min Comm on [facility] blood pressure 2022-03-07 14:40:00 139 mm[Hg] Common [facility] - systolic [facility] blood pressure 2022-03-07 14:40:00 74 mm[Hg] [facility] - diastolic [facility] height 2021-08-24 09:00:00 60.75 [in_i] [facility] weight 2021-08-24 09:00:00 136.8 [lb_av] [facility] temperature 2021-08-24 09:00:00 97.8 [degF] [facility] bmi 2021-08-24 09:00:00 26.06 kg/m2 [facility] oximetry 2021-08-24 09:00:00 96 % [facility] respiratory rate 2021-08-24 09:00:00 16 /min Comm on [facility] blood pressure 2021-08-24 09:00:00 133 mm[Hg] [facility] - systolic [facility] blood pressure 2021-08-24 09:00:00 78 mm[Hg] [facility] - diastolic [facility] height 2021-06-28 13:00:00 60.75 [in_i] Common [facility] weight 2021-06-28 13:00:00 137 [lb_av] Common [facility] temperature 2021-06-28 13:00:00 97.9 [degF] Common [facility] bmi 2021-06-28 13:00:00 26.1 kg/m2 Common [facility] oximetry 2021-06-28 13:00:00 100 % Common [facility] respiratory rate 2021-06-28 13:00:00 18 /min Comm on [facility] blood pressure 2021-06-28 13:00:00 129 mm[Hg] Common [facility] - systolic [facility] blood pressure 2021-06-28 13:00:00 69 mm[Hg] Common [facility] diastolic [facility] height 2021-05-31 14:40:00 60.75 [in_i] Common [facility] weight 2021-05-31 14:40:00 128 [lb_av] Common [facility] temperature 2021-05-31 14:40:00 97.1 [degF] Common [facility] bmi 2021-05-31 14:40:00 24.38 kg/m2 [facility] oximetry 2021-05-31 14:40:00 99 % [facility] respiratory rate 2021-05-31 14:40:00 18 /min Comm on [facility] blood pressure 2021-05-31 14:40:00 123 mm[Hg] Common [facility] systolic [facility] blood pressure 2021-05-31 14:40:00 84 mm[Hg] Common [facility] diastolic [facility] Procedures This patient has no known procedures. Encounters Start End Encounter Admission Attending Care Care Encounter Source Date/Time Date/Time Type Type Clinicians Facility Department ID 2022-04-05 Outpatient ISABEL Camacho [facility] [id number] Common 15:17:01 Estella [id number] [facility] 2022-03-06 Outpatient Bell Buckle, STLMLC STLMLC [id number] Common 08:26:01 Estella [facility] 2021-08-25 Outpatient Bell Buckle, STLMLC STLMLC [id number] Common 09:36:01 Estella [facility] 2021-07-12 Outpatient Bell Buckle, STLMLC STLMLC [id number] Common 09:39:01 Estella [facility] 2021-06-28 Outpatient Bell Buckle, STLMLC STLMLC [id number] Common 11:28:00 Estella [facility] 2021-05-31 Outpatient Bell Buckle, STLMLC STLMLC [id number] Common 14:39:11 Estella [facility] 2021-05-31 Outpatient Bell Buckle, STLMLC STLMLC [id number] Common 13:14:53 Estella [id number] [facility] 2021-05-31 Outpatient Bell Buckle, STLMLC STLMLC [id number] Common 13:13:59 Estella [id number] [facility] 2021-05-31 Outpatient Bell Buckle, STLMLC STLMLC [id number] Common 13:12:57 Estella [id number] [facility] 2021-05-31 Outpatient Bell Buckle, STLMLC STLMLC [id number] Common 13:12:21 Estella [id number] [facility] 2021-05-31 Outpatient Bell Buckle, STLMLC STLMLC [id number] Common 13:06:34 Estella [id number] [facility] 2021-05-31 Outpatient Bell Buckle, STLMLC STLMLC [id number] Common 11:49:34 Estella 58417 [facility] 2021-05-31 Outpatient Bell Buckle, STLMLC STLMLC [id number] Common 11:17:45 Estella 55809 [facility] 2021-05-31 Outpatient Bell Buckle, STLMLC STLMLC [id number] Common 11:00:42 Estella [id number] [facility] 2022-10-17 2022-10-17 OFFICE STLMLC STLMLC [id number] Co mmon 00:00:00 00:00:00 VISIT [facility] ESTAB PT - CHI LEVEL 4 [facility] 2022-06-11 2022-06-11 (TEL) STLMLC STLMLC [id number] Co mmon 00:00:00 00:00:00 [facility] 2022-06-06 2022-06-06 OFFICE STLMLC STLMLC [id number] Co mmon 00:00:00 00:00:00 VISIT [facility] PT - CHI LEVEL 4 [facility] 2022-06-04 2022-06-04 (TEL) STLMLC STLMLC [id number] Co mmon 00:00:00 00:00:00 [facility] 2022-03-07 2022-03-07 OFFICE STLMLC STLMLC [id number] Co mmon 00:00:00 00:00:00 VISIT [facility] PT LEVEL 3 - [facility] 2022-02-27 2022-02-27 (TEL) STLMLC STLMLC [id number] Co mmon 00:00:00 00:00:00 [facility] 2022-01-25 2022-01-25 (TEL) STLMLC STLMLC [id number] Co mmon 00:00:00 00:00:00 [facility] 2021-08-25 2021-08-25 (TEL) STLMLC STLMLC [id number] Co mmon 00:00:00 00:00:00 [facility] 2021-08-24 2021-08-24 PREV VISIT STLMLC STLMLC [id number] Common 00:00:00 00:00:00 EST [facility] 18-[facility] - [facility] 2021-07-12 2021-07-12 (TEL) STLMLC STLMLC [id number] Co mmon 00:00:00 00:00:00 [facility] 2021-06-28 2021-06-28 OFFICE STLMLC STLMLC [id number] Co mmon 00:00:00 00:00:00 [facility] ESTAB PT - CHI LEVEL 2 [facility] 2021-05-31 2021-05-31 OFFICE STLMLC STLMLC [id number] Co mmon 00:00:00 00:00:00 [facility] ESTAB PT - CHI LEVEL 4 [facility] 2021-05-25 2021-05-25 (TEL) STLMLC STLMLC [id number] Co mmon 00:00:00 00:00:00 [facility] 2020-09-14 2020-09-14 Outpatient STLMLC STLMLC [id number] Common 00:00:00 00:00:00 [facility] 2020-08-26 2020-08-26 Outpatient STLMLC STLMLC [id number] Common 00:00:00 00:00:00 [facility] 2020-04-19 2020-04-19 Outpatient STLMLC STLMLC [id number] Common 00:00:00 00:00:00 [facility] 2020-02-03 2020-02-03 Outpatient STLMLC STLMLC [id number] Common 00:00:00 00:00:00 [facility] 2020-01-22 2020-01-22 [facility] [id number] Common 18:16:00 18:16:[address] [facility] [address] [facility] 2020-01-18 2020-01-18 [facility] [id number] Common 14:20:00 14:20:00 t [facility] [address] [facility] 2020-01-13 2020-01-13 [facility] [id number] Common 10:26:00 10:26:00 [address] [facility] [address] [facility] [address] [facility] 2019-11-19 2019-11-19 [facility] [id number] Common 09:48:00 09:48:00 [facility] [address] [facility] 2019-05-20 2019-05-20 [facility] [id number] Common 08:20:00 08:20:00 t [facility] [address] [facility] 2019-03-18 2019-03-18 [facility] [id number] Common 10:40:00 10:40:[address] [facility] [address] [facility] [address] [facility] 2019-02-18 2019-02-18 [facility] [id number] Common 14:30:00 14:30:[address] [facility] [address] [facility] [facility] 2018-04-21 2018-04-21 Outpatient STLMLC STLMLC [id number] Common 14:19:00 14:19:00 [facility] 2018-04-16 2018-04-16 [facility] [id number] Common 18:01:00 18:01:[address] [facility] [address] [facility] [facility] 2017-10-04 2017-10-04 [facility] [id number] Common 09:06:00 09:06:[address] [facility] [address] [facility] [facility] 2017-10-02 2017-10-02 [facility] [id number] Common 14:30:00 14:30:[address] [facility] [address] [facility] Results Test Description Test Time Test Comments Results Result Comments Source HEMOGLOBIN A1C 2022-10-17 00:00:00 Test Item Value Reference Range Interpretation Comme nts A1C (test code = 4548-4) 8.6 HEMOGLOBIN [id number] 00:00:00 Test Item Value Reference Range Interpretation Comments A1C (test code = 4548-4) 7.8 HEMOGLOBIN A1C Test Item Value Reference Range Interpretation Comments A1C (test code = 4548-4) 7.5
[2023-04-04 10:07] LABS: Specific Gravity > 1.030 (1.005-1.030); Urine Bacteria <20 /HPF (<20); Urine Bilirubin 1+ (Negative); Urine Blood 3+ (OVER) (Negative); Urine Clarity Extremely Turbid (Clear); Urine Color Yellow (Yellow); Urine Glucose TRACE (Negative); Urine Mucus 4+ /HPF (None Seen); Urine Protein 1+ (Negative); Urine RBC <5 /HPF (None Seen); Urine Urobilinogen 1+ (Normal)
[2023-04-04 10:08] LABS: ALT/SGPT 12 U/L (13-56); Albumin 4.4 g/dL (3.4-5.0); Alkaline Phosphatase 69 U/L (45-117); BUN Blood Urea Nitrogen 18 mg/dL (7-18); Bicarbonate 18 mEq/L (21-32); Bilirubin Direct 0.1 mg/dL (0-0.2); Bilirubin Indirect, Calculated 0.5 mg/dL (0.2-0.8); Bilirubin Total 0.6 mg/dL (0.2-1.0); Glomerular Filtration Rate 114 ml/min (=/>90); Glucose Level 158 mg/dL (74-106); Lipase 15 U/L (13-75); Magnesium 1.8 mg/dL (1.6-2.4); Phosphorus 3.3 mg/dL (2.5-4.9); Potassium 3.7 mEq/L (3.5-5.1); Protein, Total 8.9 g/dL (6.4-8.2); Sodium Level 135 mEq/L (136-145)
[2023-04-04 10:09] LABS: AST/SGOT < 4 U/L (15-37)
[2023-04-04 10:25] LABS: RBC Red Blood Cell Count 5.26 M/uL (3.86-4.86)
[2023-04-04 10:26] LABS: Absolute Lymphocytes (CBC) 1.7 K/uL (0.7-4.9); Hematocrit 44.2 % (36.0-45.0); Lymphocytes % 28.3 % (15.3-44.8); MCV 84.1 fL (80-100); MPV 7.5 fL (7.6-11.3); Platelets 284 thou/uL (152-406)
[2023-04-04] MEDS ORDERED: NA CHLORIDE 0.9% 2,000 ML ONE (10:32)
--- NOTE | 2023-04-04 12:14 | ER ---
Nurse's Notes [facility] Name: Zehra Nicole Age: 37 yrs Sex: Female : 1985 Arrival Date: 04/04/2023 Time: 09:15 Bed 12 Private MD: Diagnosis: Type 1 diabetes mellitus with hyperglycemia;Dehydration Presentation: 04/04 09:21 Chief complaint: Patient states: Higher than normal blood sugars for 1 week. + nausea, ll1 fatigue, weak. Coronavirus screen: Client denies travel out of the [place] in the last 14 days. At this time, the client does not indicate any symptoms associated with coronavirus-19. Ebola Screen: Patient denies travel to an Ebola-affected area in the 21 days before illness onset. No acute neurological deficit is noted. Initial Sepsis Screen: Does the patient meet any 2 criteria? HR > 90 bpm. No. Patient's initial sepsis screen is negative. Does the patient have a suspected source of infection? No. Patient's initial sepsis screen is negative. Risk Assessment: Do you want to hurt yourself or someone else? Patient reports no desire to harm self or others. Onset of symptoms was March 28, 2023. 09:21 Method Of Arrival: Ambulatory ll1 09:21 Acuity: KAZ 3 ll1 Triage Assessment: 09:25 General: Appears uncomfortable, Behavior is calm, cooperative, appropriate for age. ll1 General: Reports feeling ill for fatigue for. Neuro: Reports weakness. GI: Reports nausea. 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 - Social history:: Smoking status: Patient denies any tobacco usage or history of. Screenin:24 [facility] ED Fall Risk Assessment (Adult) Score/Fall Risk Level 0 - 2 = Low Risk jl7 Oriented to surroundings, Maintained a safe environment. Abuse screen: Denies threats or abuse. Denies injuries from another. Nutritional screening: No deficits noted. Tuberculosis screening: No symptoms or risk factors identified. Assessment: 10:17 Reassessment: No changes from previously documented assessment. Patient and/or family ll1 updated on plan of care and expected duration. Pain level reassessed. 10:25 Reassessment: Pt placed in wheelchair, fluids hung, wheeled to lobby and awaiting ED jl7 room to open. 12:20 Pain: Denies pain. cp4 Vital Signs: 09:21 BP 140 / 103; Pulse 117; Resp 18; Temp 98.3; Pulse Ox 99% on R/A; ll1 11:27 BP 137 / 97; Pulse 93; Resp 18; Pulse Ox 99% ; cp4 12:19 BP 107 / 66; Pulse 88; Resp 17; Pulse Ox 100% ; cp4 ED Course: 09:18 Patient arrived in ED. mg5 09:18 Laura Olson PA-C is PHCP. sb4 09:19 Hermes Frausto MD is Attending Physician. sb4 09:21 Arm band placed on. ll1 09:25 Triage completed. ll1 09:40 Missed attempt(s): 22 gauge in left antecubital area. bc6 09:46 Basic Metabolic Panel Sent. bc6 09:46 CBC with Diff Sent. bc6 09:46 Hepatic Function Sent. bc6 09:46 Lipase Sent. bc6 09:46 Magnesium Sent. bc6 09:46 Phosphorus Sent. bc6 09:46 Inserted saline lock: 20 gauge in right forearm, using aseptic technique. Blood bc6 collected. 09:52 UAM Sent. bc6 10:24 Patient has correct armband on for positive identification. Provided Education on: test.jl7 10:45 Patient placed in an exam room, on a stretcher. ll1 11:16 Angie Thompson is Primary Nurse. cp4 12:20 No provider procedures requiring assistance completed. intact, bleeding controlled, No cp4 redness/swelling at site. Pressure dressing applied. Administered Medications: 10:23 Drug: NS 0.9% IV 2000 ml IV at 1 bolus Per protocol; 2000 mL bolus Route: IV; Rate: 1 jl7 bolus; Site: right wrist; 12:22 Follow up: Response: No adverse reaction; IV Status: Completed infusion cp4 Medication: 12:20 VIS not applicable for this client. cp4 Outcome: 12:13 Discharge ordered by . sb4 12:20 Discharged to home ambulatory, cp4 12:20 Condition: stable 12:20 Discharge instructions given to patient, Instructed on discharge instructions, follow up and referral plans. medication usage, Demonstrated understanding of instructions, follow-up care, medications, Prescriptions given X 1, 12:23 Patient left the ED. cp4 Signatures: Felicitas Parks RN RN jl7 Dunia Barnett RN RN ll1 Laura Olson, PA-C PA-Oumar sb4 Stefani Tracey bc6 Patience Clayton Christina cp4 Corrections: (The following items were deleted from the chart) 12:23 09:46 BETA HYDROXYBUTYRATE+C.LAB.BRZ drawn and sent. bc6 cp4
--- NOTE | 2023-04-04 12:14 | EDPHYS ---
Physician Documentation [facility] Name: Zehra Nicole Age: 37 yrs Sex: Female : 1985 Arrival Date: 04/04/2023 Time: 09:15 Bed 12 Private MD: ED Physician Hermes Frausto HPI: 04/04 10:56 This 37 yrs old Female presents to ER via Ambulatory with complaints of Weakness, High sb4 Blood Sugar, Nausea. 11:03 The patient or guardian reports generalized weakness, hyperglycemia. patient is a type sb4 1 diabetic, states she was sick with a URI 1 week ago and has had difficulty controlling her blood sugar throughout the past week. states she has been having to use 2-3x the normal amount of her insulin despite eating very little. she feels very weak and dehydrated, also endorses nausea and vomiting. no chest pain, sob, diaphoresis. 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 - Social history:: Smoking status: Patient denies any tobacco usage or history of. ROS: 11:03 Respiratory: Negative for shortness of breath, cough, wheezing, and pleuritic chest sb4 pain, 11:03 Constitutional: Positive for fatigue, malaise, poor PO intake, 11:03 Abdomen/GI: Positive for nausea and vomiting, 11:03 All other systems are negative, Exam: 11:07 Head/Face: Normocephalic, atraumatic. Eyes: Extra-ocular motions intact. Periorbital sb4 areas with no swelling, redness, or edema. Respiratory: Lungs have equal breath sounds bilaterally, clear to auscultation and percussion. No rales, rhonchi or wheezes noted. No increased work of breathing, no retractions or nasal flaring. Abdomen/GI: Soft, non-tender, no distension. Skin: Warm, dry with normal turgor. Normal color with no rashes, no lesions, and no evidence of cellulitis. MS/ Extremity: Pulses equal, no cyanosis. Neurovascular intact. Full, normal range of motion. Neuro: Awake and alert, GCS 15, oriented to person, place, time, and situation. Motor strength 5/5 in all extremities. Sensory grossly intact. 11:07 Constitutional: The patient appears in no acute distress, alert, awake, 11:07 ENT: Mouth: Oral mucosa: dry, 11:07 Cardiovascular: Rate: tachycardic, Rhythm: regular, Pulses: no pulse deficits are appreciated, Vital Signs: 09:21 BP 140 / 103; Pulse 117; Resp 18; Temp 98.3; Pulse Ox 99% on R/A; ll1 11:27 BP 137 / 97; Pulse 93; Resp 18; Pulse Ox 99% ; cp4 12:19 BP 107 / 66; Pulse 88; Resp 17; Pulse Ox 100% ; cp4 MDM: 09:20 Patient medically screened. sb4 11:07 Differential diagnosis: DKA, hyperglycemia, hypoglycemic episode. sb4 12:12 Data reviewed: vital signs, nurses notes, lab test result(s), and as a result, I will sb4 discharge patient. Care significantly affected by the following chronic conditions: Diabetes. Counseling: I had a detailed discussion with the patient and/or guardian regarding the historical points, exam findings, and any diagnostic results supporting the discharge/admit diagnosis, lab results, the need for outpatient follow up, rn dialysis, to return to the emergency department if symptoms worsen or persist or if there are any questions or concerns that arise at home. 04/04 09:28 Order name: Basic Metabolic Panel; Complete Time: 10:13 sb4 04/04 09:28 Order name: CBC with Diff; Complete Time: 10:48 sb4 04/04 09:28 Order name: Hepatic Function; Complete Time: 10:13 sb4 04/04 09:28 Order name: Lipase; Complete Time: 10:13 sb4 04/04 09:28 Order name: Magnesium; Complete Time: 10:13 sb4 04/04 09:28 Order name: Phosphorus; Complete Time: 10:13 sb4 04/04 09:28 Order name: UAM; Complete Time: 10:13 sb4 04/04 09:28 Order name: IV Saline Lock; Complete Time: 09:46 sb4 04/04 09:28 Order name: O2 Sat Monitoring; Complete Time: 10:09 sb4 04/04 11:26 Order name: PO challenge; Complete Time: 12:23 sb4 Administered Medications: 10:23 Drug: NS 0.9% IV 2000 ml IV at 1 bolus Per protocol; 2000 mL bolus Route: IV; Rate: 1 jl7 bolus; Site: right wrist; 12:22 Follow up: Response: No adverse reaction; IV Status: Completed infusion cp4 Disposition: 15:23 Co-signature as Attending Physician, Hermes Frausto MD I reviewed the patient's care rn provided by the Advanced Practice Provider and agree with the diagnosis and treatment plan. Disposition Summary: 04/04/23 12:13 Discharge Ordered Notes: Location: Home sb4 Problem: new sb4 Symptoms: have improved sb4 Condition: Stable sb4 Diagnosis - Type 1 diabetes mellitus with hyperglycemia sb4 - Dehydration sb4 Followup: sb4 - With: Emergency Department - When: As needed - Reason: Trouble breathing, Worsening of condition Discharge Instructions: - Discharge Summary Sheet sb4 Forms: - Medication Reconciliation Form sb4 - Thank You Letter sb4 - Antibiotic Education sb4 - Prescription Opioid Use sb4 - Patient Portal Instructions sb4 - Leadership Thank You Letter sb4 Prescriptions: - Zofran 4 mg Oral Tablet - take 1 tablet ORAL route every 12 hours As needed; 20 tablet; Refills: 0, sb4 Product Selection Permitted Signatures: Dispatcher [employer] EDMS Hermes Frausto MD MD rn Leal, Jahala RN RN jl7 Dunia Barnett RN RN ll1 Luara Olson PA-C PAJose Manuel sb4 Angie Thompson cp4 Corrections: (The following items were deleted from the chart) 12: 09:28 BETA HYDROXYBUTYRATE+[id number].LAB.BRZ ordered. sb4 cp4
[2023-04-04 13:33] VITALS: TEMP 98.3
[2023-04-04 13:36] VITALS: BP 107/66; O2SAT 100
== END 2023-04-04 12:23 | disposition home or self-care (01) ==
LOC: ER 09:15
DX: E10.65 Type 1 diabetes mellitus with hyperglycemia (principal); E86.0 Dehydration
CPT/HCPCS: 96361; 85025; 81001; 80048; 36415; 83735; 84100; 80076; 83690; 96360; 99284; J7030